=== PATIENT | male | born 1960 | race Caucasian/White ===

== ENCOUNTER 2016-08-05 07:32 | Day surgery (SDC) | payer MEDICARE ==
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
[~2016-08-05 07:32] MED LIST: Buffered Lidocaine 1% SYR 3ML* 3 ML/SYR SYRINGE INTRADERM ONE
[2016-08-05] MEDS ORDERED: ceFAZolin 2 GM PREMIX (*) 2 GM/50 ML BAG IVPB ONE (07:46)
[2016-08-05] MEDS ORDERED: Lidocaine 1% INJ* 10 MG/ML 30 ML SDV ONE (08:32)
[2016-08-05] MEDS ORDERED: Midazolam* 1 MG/ML 2 ML VIAL (2 MG) ONE ×2 (08:33→08:50)
[2016-08-05] MEDS ORDERED: fentaNYL* 50 MCG/ML 2 ML VIAL (100 MCG VIAL) ONE (08:33)
[2016-08-05] MEDS ORDERED: Propofol* 10 MG/ML 20 ML BTL IV PUSH ONE (08:49)
[2016-08-05] MEDS ORDERED: Ketorolac INJ* 30 MG/ML 1 ML VIAL ONE (08:49)
[2016-08-05] MEDS ORDERED: Lidocaine 2% PF * 5 ML VIAL ONE (08:49)
[2016-08-05] MEDS ORDERED: HYDROcodone/ACETAMIN 5-325 MG* 1 TAB PO PRN (09:14)
[2016-08-05] MEDS ORDERED: Acetaminophen TAB* 325 MG PO PRN (09:14)
[2016-08-05] MEDS ORDERED: Ondansetron INJ* 2 MG/ML VIAL IV PRN (09:14)
[2016-08-05] MEDS ORDERED: DiMENhydriNATE IV* 50 MG/ML VIAL IV PUSH PRN (09:14)
[2016-08-05 09:40] VITALS: BP 116/78
--- NOTE | 2016-08-06 07:17 | OP ---
DATE OF OPERATION: 08/05/16 [facility] DATE OF : 62 SURGEON: Dr. Duron. HEALTH SERVICE COORDINATOR: JOYCE Jean Baptiste ANESTHESIOLOGIST: Dr. Wallace ANESTHESIA: Local MAC. PRE-OP DIAGNOSIS: Boutonniere deformity of the right ring finger. POST-OP DIAGNOSIS: Boutonniere deformity of the right ring finger. OPERATIVE PROCEDURE: Extensor tenotomy of the right ring finger and PIP joint release. ESTIMATED BLOOD LOSS: Zero. TOURNIQUET TIME: 33 minutes. INDICATIONS FOR PROCEDURE: Varinder is a 56-year-old male who developed a Boutonniere deformity of his right ring finger and middle finger. The middle finger as nearly corrected with therapy, but the ring finger still has a very rigid flexion contracture with a very marked hyperextension of the DIP joint. He presents for Boutonniere correction of the right ring finger. DESCRIPTION OF PROCEDURE: The patient was brought to the operating room, was given a sedation anesthetic and a digital block with 10 cc of 1% lidocaine. The skin of his right hand and forearm were prepped and dapped in the usual sterile fashion. The hand and forearm were exsanguinated and the tourniquet elevated to 250 mmHg. A longitudinal incision was made on the dorsal aspect of the right finger. We dissected through the subcutaneous tissue down to the extensor mechanism. The extensor tendon overlying the mid aspect of the middle phalanx was incised in a diagonal fashion and then the DIP joint was able to flex. We then dissected the extensor tendon and central slip off of the periosteum and the joint capsule were still unable to extend the PIP joint so the collateral ligaments were incised and the radial lateral bands transected and then we were able to gain full extension of the PIP joint with the MP flexed and extended. There was very good range of motion, flexion, and extension. It was decided at this point not to proceed with further correct of the Boutonniere deformity so that we can concentrate on PIP range of motion and if necessary will come back to correct any attenuation of the central slip. The wound was irrigated and skin edges reapproximated with 4-0 nylon suture. The wound was dressed with Xeroform, 4 x 4, Webril, and Coban. The patient tolerated the procedure well and was brought to the recovery room in good condition. [id number]/[facility] #: [id number] [facility]
== END 2016-08-05 10:17 | disposition home or self-care (01) ==
LOC: OREAST 07:32
PROVIDERS: ATTEND Orthopaedic Surgery
DX: M20.021 Boutonniere deformity of right finger(s) (principal); I10 Essential (primary) hypertension; G47.33 Obstructive sleep apnea (adult) (pediatric)
CPT/HCPCS: J0690; J1885; J2250; J2704; J3010

== ENCOUNTER 2018-11-16 15:32 | Emergency (ER) | payer MEDICARE ==
[2018-11-16 15:46] VITALS: BP 130/91
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
== END 2018-11-16 16:29 | disposition home or self-care (01) ==
LOC: UCEAST 15:32
DX: T63.481A Toxic effect of venom of other arthropod, accidental (unintentional), initial encounter (principal); R53.83 Other fatigue; M79.10 Myalgia, unspecified site; Y92.007 Garden or yard of unspecified non-institutional (private) residence as the place of occurrence of the external cause
CPT/HCPCS: 99212; G0463

== ENCOUNTER 2019-04-16 17:44 | Inpatient (IN) | payer MEDICARE ==
--- OUTSIDE RECORDS SUMMARY | 2019-04-16 18:16 | XMS REPORT | Continuity of Care Document ---
:1960 External Reference #:[id number] Author Name Jericho Martínez MD Address [address] [place] [address] Care Team Providers Name Role Phone Vignesh Fleming M.D. 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 Gastroesophageal reflux disease Jericho Martínez MD Onset: 04/28/2016 Difficulty speaking Jericho Martínez MD Onset: 04/28/2016 Social History Type Date Description Comments Sex Unknown Tobacco Use Start: Unknown Never Smoked Cigarettes Tobacco Use Start: Unknown End: Unknown current.no Tobacco Use Start: Unknown End: Unknown current.no Smokeless Tobacco current.no ETOH Use Currently rarely consumes alcohol Allergies, Adverse Reactions, Alerts Description No Known Drug Allergies Medications Active Medications SIG Qnty Indications Ordering Date Provider Multivitamin & take once daily Unknown Mineral Liquid Lidocaine (Anorectal) apply to rectum 15units Unknown every 4 hours as 5% Cream needed pain Glucosamine 1 by mouth every Unknown Chondroitin 1500 day Complex 1500Com Capsules Fluoridex Unknown Lidocaine Vignesh Fleming M.D. 5% Ointment Claritin 1 by mouth every Unknown 10mg Tablets day Fluticasone Use 1 [place] In Unknown Propionate Each Nostril AT 50mcg/Act Bedtime Suspension Celecoxib Take 1 Capsule By Unknown 100mg Mouth Two Times Capsules Daily Esomeprazole Take 1 Capsule By Unknown Magnesium Mouth Every Day 40mg Capsules 30-[address] Before Breakfast Levalbuterol Tartrate Inhale 2 Puffs By Unknown Mouth Every 6 45mcg/Act Aerosol Hours Duloxetine HCL Take 2 Capsules Unknown 60mg By Mouth Every Caps DR Part Day Gabapentin Take 1 Capsule By Unknown 300mg Mouth AT Bedtime Capsules And Take 1 Capsule In The Day as Needed Topiramate 1 by mouth twice , Vignesh Buchanan 50mg Tablets a day Lisinopril 1 by mouth every Law, Vignesh Buchanan 20mg Tablets day Lipitor 1 by mouth every Law, Vignesh Buchanan 20mg Tablets day Epipen 2-Gonzalo inject as needed Law, Vignesh Buchanan for allergic 0.3mg/0.3ML Solution reaction Auto-Inject Diclofenac Sodium up to 3 times/day Law, Vignesh Buchanan 1% as needed Gel Clonazepam 1/4 tab twice a Law, Vignesh Buchanan 0.5mg day Tablets Buspirone HCL as directed Law, Vignesh Buchanan 15mg Tablets Bupropion HCL 1 by mouth twice Law, Vignesh Buchanan 75mg a day Tablets Immunizations Description No Information Available Vital Signs Date Vital Result Comment 04/11/2019 9:59am Weight 171.00 lb Weight 77.566 kg Height 71 inches 5'11" Height in cm's 180.3 cm BMI (Body Mass Index) 23.8 kg/m2 04/28/2016 3:26pm BP Systolic 159 mmHg BP Diastolic 89 mmHg Heart Rate 79 /min Respiratory Rate 17 /min Weight 156.00 lb Weight 70.762 kg Height 71 inches 5'11" Height in cm's 180.3 cm BMI (Body Mass Index) 21.8 kg/m2 Results Description No Information Available Procedures Description No Information Available Medical Devices Description No Information Available Encounters Type Date Location Provider Dx Diagnosis Office Visit 04/11/2019 Adonay Whyte Ashu K13.29 Other disturbances 9:30a 06/19/07 of oral epithelium, including tongue Assessments Date Code Description Provider 04/11/2019 K13.29 Other disturbances of oral epithelium, including Ruparelia , Jericho MD tongue Plan of Treatment 04/11/2019 - Jericho Martínez MDK13.29 Other disturbances of oral epithelium, including tongueComments:Small benign vascular lesion of the lower lip. No specific etiology for halitosis. Discussed using chlorophyll tablets which may help him these are [id number]. Functional Status Description No Information Available Mental Status Description No Information Available Referrals Description No Information Available
[2019-04-16] MEDS ORDERED: NS 0.9% 1000 ML** 1,000 ML IV ONE (18:39)
[2019-04-16] MEDS ORDERED: Lorazepam PYXIS KEY PRN ×3 (18:40→19:20)
[2019-04-16] MEDS ORDERED: LORazepam INJ* 2 MG/ML 1 ML VIAL IV PUSH ONE ×3 (18:40→19:20)
[2019-04-16] MEDS ORDERED: Lorazepam PYXIS KEY ONE ×2 (18:43→19:34)
[2019-04-16] MEDS ORDERED: LORazepam INJ* 2 MG/ML 1 ML VIAL ONE (18:43)
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
[2019-04-16 19:05] LABS: ABS Lymphocytes 0.9 10^3/ul (1.0-4.8); ABS Monocytes 0.5 10^3/ul (0-0.8); ABS Neutrophils 3.7 10^3/ul (1.5-7.7); Eosinophil % 0.1 %; Hematocrit 40 % (42-52); Hemoglobin 13.6 g/dL (14.0-18.0); Lymphocyte % 17.4 %; Mean Corpuscular HGB Conc 34 g/dL (31-36); Mean Corpuscular Hemoglobin 31 pg (27-31); Mean Corpuscular Volume 89 fL (80-94); Mean Platelet Volume 9.7 fL (7.4-10.4); Nucleated Red Blood Cells % 0.1; Platelet Count 163 10^3/uL (150-450); Red Blood Count 4.47 10^6 /uL (4.18-5.48); Red Cell Distribution Width 14 % (10-15); White Blood Count 5.1 10^3/uL (3.5-10.8)
[2019-04-16 19:24] LABS: ALT 26 U/L (7-52); AST 15 U/L (13-39); Albumin 4.2 g/dL (3.2-5.2); Alkaline Phosphatase 85 U/L (34-104); Anion Gap 7 mmol/L (2-11); BUN/Creatinine Ratio 25.3 (8-20); Blood Urea Nitrogen 20 mg/dL (6-24); CO2 Carbon Dioxide 27 mmol/L (22-32); Calcium 9.1 mg/dL (8.6-10.3); Chloride 106 mmol/L (101-111); EGFR African American 122.3 (>60); EGFR Non-African American 101.1 (>60); Globulin 2.1 g/dL (2-4); Glucose 100 mg/dL (70-100); Potassium 3.2 mmol/L (3.5-5.0); Sodium 140 mmol/L (135-145); Total Protein 6.3 g/dL (6.4-8.9)
[2019-04-16 19:58] LABS: TSH (Thyroid Stimulating Horm) 1.61 mcIU/mL (0.34-5.60)
[2019-04-16] MEDS ORDERED: Potassium Chlor TAB* 20 MEQ TAB.ER PO ONE (20:56)
[2019-04-16 22:07] LABS: Alcohol < 10 mg/dL (<10)
--- NOTE | 2019-04-16 22:14 | ED ---
Progress - Progress Note Progress Note: This pt is a sign out to Dr. Shrestha from Dr. Medina at shift change 2200 pending a MHE and disposition. Course/Dx - Course Course Of Treatment: This pt is a sign out to Dr. Shrestha from Dr. Medina at shift change 2200 04/16/19 pending a MHE and disposition. - Diagnoses Provider Diagnoses: Unspecified psychosis - Provider Notifications Time Discussed With Above Provider: 12:15 Instructed by Provider To: Other - Mental health informatics manager reviewed case with Dr. Mora, psychiatry. They recommend admission. Discharge ED - Sign-Out/Discharge Documenting (check all that apply): Patient Departure - Admit, Receiving Sign- Out Receiving patient FROM: Radha Medina - Discharge Plan Condition: Stable Disposition: PSYCHIATRIC FACILITY-[facility] - Attestation Statements Document Initiated by Scribe: Yes Documenting Scribe: Tyron Gurrola Provider For Whom Scribe is Documenting (Include Credential): Tiffanie Shrestha MD Scribe Attestation: Tyron Batista, scribed for Tiffanie Shrestha MD on 04/17/19 at 0143. Status of Scribe Document: Ready
[2019-04-16 23:26] LABS: Urine Appearance Clear; Urine Bilirubin Negative (Negative); Urine Blood Negative (Negative); Urine Color Amber; Urine Glucose Negative (Negative); Urine Ketones 2+ (Negative); Urine Nitrite Negative (Negative); Urine Protein Negative (Negative); Urine Specific Gravity 1.023 (1.010-1.030); Urine Urobilinogen Negative (Negative)
[2019-04-16 23:50] LABS: Urine Benzodiazepine Screen None Detected (None Detect); Urine Opiates Screen None Detected (None Detect)
[2019-04-17] MEDS ORDERED: Al Hydrox/Mg Hydrox/Simet LIQ* 30 ML UDC PO PRN (03:19)
[2019-04-17] MEDS: Vitamin THERAPEUTIC TAB PO SCH (10:24)
[2019-04-17] MEDS ORDERED: DICLOFENAC 1% TOPICAL PRN (14:07)
[2019-04-17] MEDS ORDERED: Levalbuterol HFA INHALER* 1 PUFF MDI INH PRN (14:07)
--- NOTE | 2019-04-17 16:56 | PN ---
BSU: Group Therapy Note - Service Type Service Type: [id number] Group Psychotherapy - Medication Education Group: Patient was attentive and participatory in group, and remained in good behavioral control. Patient expressed positive insights regarding relevant treatment interventions. Patient stated understanding of material discussed and had appropriate questions.
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
[2019-04-17] MEDS ORDERED: busPIRone TAB* 15 MG PO SCH (21:00)
[2019-04-17] MEDS ORDERED: Gabapentin CAP(*) 300 MG PO SCH (21:00)
[2019-04-17] MEDS: celeCOXIB CAP* 100 MG PO SCH (21:18)
[2019-04-17] MEDS: Gabapentin CAP(*) 300 MG PO SCH (21:18)
[2019-04-17] MEDS: Topiramate TAB(*) 25 MG PO SCH (21:18)
[2019-04-17] MEDS: busPIRone TAB* 15 MG PO SCH (21:18)
[2019-04-18] MEDS: clonazePAM TAB(*) 0.5 MG PO PRN ×2 (03:51→09:17)
[2019-04-18 08:45] LABS: HDL Cholesterol 50.5 mg/dL
[2019-04-18] MEDS: busPIRone TAB* 15 MG PO SCH ×3 (09:15→21:22)
[2019-04-18] MEDS: DULoxetine DR CAP* 60 MG CAP.DR PO SCH (09:15)
[2019-04-18] MEDS: Lisinopril TAB* 10 MG PO SCH (09:15)
[2019-04-18] MEDS: Atorvastatin* 20 MG TAB PO SCH (09:15)
[2019-04-18] MEDS: celeCOXIB CAP* 100 MG PO SCH ×2 (09:16→21:23)
[2019-04-18] MEDS: Topiramate TAB(*) 25 MG PO SCH ×2 (09:16→21:23)
[2019-04-18] MEDS: Pantoprazole TAB * 40 MG TAB PO SCH (09:16)
[2019-04-18] MEDS: Cetirizine* 10 MG TAB PO SCH (09:16)
[2019-04-18] MEDS: Vitamin THERAPEUTIC TAB PO SCH (09:17)
[2019-04-18] MEDS: Acetaminophen TAB* 325 MG PO PRN (11:25)
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
[2019-04-18] MEDS: Divalproex DR TAB(*) 250 MG PO SCH (21:24)
[2019-04-18] MEDS: Gabapentin CAP(*) 300 MG PO SCH (21:24)
[2019-04-19] MEDS: clonazePAM TAB(*) 0.5 MG PO PRN ×2 (02:02→15:35)
[2019-04-19] MEDS: Atorvastatin* 20 MG TAB PO SCH (13:48)
[2019-04-19] MEDS: Cetirizine* 10 MG TAB PO SCH (13:48)
[2019-04-19] MEDS: DULoxetine DR CAP* 60 MG CAP.DR PO SCH (13:48)
[2019-04-19] MEDS: busPIRone TAB* 15 MG PO SCH ×3 (13:48→21:33)
[2019-04-19] MEDS: Lisinopril TAB* 10 MG PO SCH (13:49)
[2019-04-19] MEDS: Topiramate TAB(*) 25 MG PO SCH ×2 (13:49→21:35)
[2019-04-19] MEDS: Vitamin THERAPEUTIC TAB PO SCH (13:49)
[2019-04-19] MEDS: celeCOXIB CAP* 100 MG PO SCH ×2 (13:49→21:38)
[2019-04-19] MEDS: Divalproex DR TAB(*) 250 MG PO SCH ×2 (13:49→21:34)
[2019-04-19] MEDS: Pantoprazole TAB * 40 MG TAB PO SCH (13:49)
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
[2019-04-19] MEDS: Gabapentin CAP(*) 300 MG PO SCH (21:34)
[2019-04-20] MEDS: Divalproex DR TAB(*) 250 MG PO SCH ×2 (10:25→20:58)
[2019-04-20] MEDS: Cetirizine* 10 MG TAB PO SCH (10:25)
[2019-04-20] MEDS: Atorvastatin* 20 MG TAB PO SCH (10:25)
[2019-04-20] MEDS: Pantoprazole TAB * 40 MG TAB PO SCH (10:25)
[2019-04-20] MEDS: Topiramate TAB(*) 25 MG PO SCH ×2 (10:26→21:00)
[2019-04-20] MEDS: DULoxetine DR CAP* 60 MG CAP.DR PO SCH (10:26)
[2019-04-20] MEDS: Lisinopril TAB* 10 MG PO SCH (10:26)
[2019-04-20] MEDS: busPIRone TAB* 15 MG PO SCH ×3 (10:26→20:58)
[2019-04-20] MEDS: Vitamin THERAPEUTIC TAB PO SCH (10:27)
[2019-04-20] MEDS: celeCOXIB CAP* 100 MG PO SCH (10:27)
[2019-04-20] MEDS: CMC:Diclofenac 1% GEL (NF) 100 GM TUBE TOPICAL PRN ×2 (11:28→21:04)
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
[2019-04-20] MEDS: Acetaminophen TAB* 325 MG PO PRN (20:57)
[2019-04-20] MEDS: Gabapentin CAP(*) 300 MG PO SCH (20:59)
[2019-04-20] MEDS: clonazePAM TAB(*) 0.5 MG PO PRN (21:00)
[2019-04-21] MEDS: clonazePAM TAB(*) 0.5 MG PO PRN ×3 (01:16→23:30)
[2019-04-21] MEDS: celeCOXIB CAP* 100 MG PO SCH ×2 (01:26→09:46)
[2019-04-21] MEDS: DULoxetine DR CAP* 60 MG CAP.DR PO SCH (09:46)
[2019-04-21] MEDS: busPIRone TAB* 15 MG PO SCH ×3 (09:46→20:00)
[2019-04-21] MEDS: Topiramate TAB(*) 25 MG PO SCH ×2 (09:46→20:00)
[2019-04-21] MEDS: Pantoprazole TAB * 40 MG TAB PO SCH (09:47)
[2019-04-21] MEDS: Atorvastatin* 20 MG TAB PO SCH (09:47)
[2019-04-21] MEDS: Cetirizine* 10 MG TAB PO SCH (09:47)
[2019-04-21] MEDS: Divalproex DR TAB(*) 250 MG PO SCH ×2 (09:47→20:01)
[2019-04-21] MEDS: Lisinopril TAB* 10 MG PO SCH (09:47)
[2019-04-21] MEDS: Vitamin THERAPEUTIC TAB PO SCH (09:48)
[2019-04-21] MEDS: CMC:Diclofenac 1% GEL (NF) 100 GM TUBE TOPICAL PRN (09:49)
[2019-04-21] MEDS: Acetaminophen TAB* 325 MG PO PRN (15:22)
[2019-04-21] MEDS: Gabapentin CAP(*) 300 MG PO SCH (20:01)
[2019-04-21] MEDS: Lidocaine 5% OINT* TUBE TOPICAL PRN (20:05)
[2019-04-22] MEDS: clonazePAM TAB(*) 0.5 MG PO PRN ×2 (05:21→21:54)
[2019-04-22] MEDS: Lidocaine 5% OINT* TUBE TOPICAL PRN (05:22)
[2019-04-22] MEDS: busPIRone TAB* 15 MG PO SCH ×3 (09:15→20:07)
[2019-04-22] MEDS: DULoxetine DR CAP* 60 MG CAP.DR PO SCH (09:15)
[2019-04-22] MEDS: Lisinopril TAB* 10 MG PO SCH (09:15)
[2019-04-22] MEDS: Divalproex DR TAB(*) 250 MG PO SCH ×2 (09:15→20:07)
[2019-04-22] MEDS: Cetirizine* 10 MG TAB PO SCH (09:16)
[2019-04-22] MEDS: Pantoprazole TAB * 40 MG TAB PO SCH (09:16)
[2019-04-22] MEDS: Atorvastatin* 20 MG TAB PO SCH (09:16)
[2019-04-22] MEDS: Topiramate TAB(*) 25 MG PO SCH ×2 (09:16→20:06)
[2019-04-22] MEDS: Vitamin THERAPEUTIC TAB PO SCH (09:16)
[2019-04-22] MEDS: celeCOXIB CAP* 100 MG PO SCH ×3 (09:16→20:35)
[2019-04-22] MEDS: CMC:Diclofenac 1% GEL (NF) 100 GM TUBE TOPICAL PRN ×2 (10:22→20:09)
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
[2019-04-22] MEDS: Gabapentin CAP(*) 300 MG PO SCH (20:06)
[2019-04-22] MEDS: Acetaminophen TAB* 325 MG PO PRN (22:01)
[2019-04-23] MEDS: clonazePAM TAB(*) 0.5 MG PO PRN (00:18)
[2019-04-23] MEDS: celeCOXIB CAP* 100 MG PO SCH (08:46)
[2019-04-23] MEDS: Atorvastatin* 20 MG TAB PO SCH (08:47)
[2019-04-23] MEDS: Lisinopril TAB* 10 MG PO SCH (08:47)
[2019-04-23] MEDS: Cetirizine* 10 MG TAB PO SCH (08:47)
[2019-04-23] MEDS: Divalproex DR TAB(*) 250 MG PO SCH (08:47)
[2019-04-23] MEDS: busPIRone TAB* 15 MG PO SCH (08:48)
[2019-04-23] MEDS: Pantoprazole TAB * 40 MG TAB PO SCH (08:48)
[2019-04-23] MEDS: DULoxetine DR CAP* 60 MG CAP.DR PO SCH (08:48)
[2019-04-23] MEDS: Vitamin THERAPEUTIC TAB PO SCH (08:48)
[2019-04-23] MEDS: Topiramate TAB(*) 25 MG PO SCH (08:49)
[2019-04-23 09:33] VITALS: BP 130/79
[2019-04-23] MEDS: CMC:Diclofenac 1% GEL (NF) 100 GM TUBE TOPICAL PRN (09:47)
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
== END 2019-04-23 14:00 | disposition home or self-care (01) | DRG 885 ==
LOC: ED 17:44 → BSU 04-17 01:00
PROVIDERS: ADMIT Psychiatry & Neurology Psychiatry; ATTEND Psychiatry & Neurology Psychiatry
DX: F30.2 Manic episode, severe with psychotic symptoms (principal); F43.12 Post-traumatic stress disorder, chronic; Z87.820 Personal history of traumatic brain injury; Z79.899 Other long term (current) drug therapy
CPT/HCPCS: 36415; 70450; 80053; 80061; 80307; 80320; 81003; 83036; 83605; 84443; 84484; 85025; 90853; 93005; 96374; 99222; 99231; 99232; 99238; 99284; A9270-GY; G0480; J2060

== ENCOUNTER 2019-04-24 11:28 | Inpatient (IN) | payer MEDICARE ==
[2019-04-24] MEDS ORDERED: LORazepam TAB(*) 1 MG PO ONE (11:33)
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
[2019-04-24 11:51] LABS: ABS Eosinophils 0.1 10^3/ul (0-0.6); ABS Lymphocytes 1.1 10^3/ul (1.0-4.8); ABS Monocytes 0.5 10^3/ul (0-0.8); ABS Neutrophils 3.9 10^3/ul (1.5-7.7); Eosinophil % 1.4 %; Hematocrit 44 % (42-52); Lymphocyte % 19.4 %; Mean Corpuscular HGB Conc 34 g/dL (31-36); Mean Corpuscular Hemoglobin 31 pg (27-31); Mean Corpuscular Volume 90 fL (80-94); Mean Platelet Volume 9.2 fL (7.4-10.4); Nucleated Red Blood Cells % 0.1; Platelet Count 186 10^3/uL (150-450); Red Blood Count 4.84 10^6 /uL (4.18-5.48); Red Cell Distribution Width 14 % (10-15); White Blood Count 5.5 10^3/uL (3.5-10.8)
[2019-04-24 11:57] LABS: Urine Appearance Clear; Urine Bilirubin Negative (Negative); Urine Blood Negative (Negative); Urine Color Yellow; Urine Glucose Negative (Negative); Urine Ketones Trace (Negative); Urine Nitrite Negative (Negative); Urine Protein Negative (Negative); Urine Specific Gravity 1.013 (1.010-1.030); Urine Urobilinogen Negative (Negative)
[2019-04-24 12:08] LABS: Urine Benzodiazepine Screen None Detected (None Detect); Urine Opiates Screen None Detected (None Detect)
[2019-04-24 12:08] LABS: ALT 18 U/L (7-52); AST 15 U/L (13-39); Albumin 4.7 g/dL (3.2-5.2); Albumin/Globulin Ratio 2.1 (1-3); Alkaline Phosphatase 89 U/L (34-104); Anion Gap 10 mmol/L (2-11); BUN/Creatinine Ratio 22.5 (8-20); Blood Urea Nitrogen 20 mg/dL (6-24); CO2 Carbon Dioxide 25 mmol/L (22-32); Calcium 9.5 mg/dL (8.6-10.3); Chloride 106 mmol/L (101-111); EGFR African American 106.6 (>60); EGFR Non-African American 88.1 (>60); Globulin 2.2 g/dL (2-4); Glucose 90 mg/dL (70-100); Potassium 3.5 mmol/L (3.5-5.0); Sodium 141 mmol/L (135-145); Total Protein 6.9 g/dL (6.4-8.9)
[2019-04-24 12:43] LABS: Acetaminophen < 15 mcg/mL; Alcohol < 10 mg/dL (<10); Salicylate < 2.50 mg/dL (<30)
[2019-04-24 12:56] LABS: TSH (Thyroid Stimulating Horm) 1.56 mcIU/mL (0.34-5.60)
[2019-04-24] MEDS ORDERED: Al Hydrox/Mg Hydrox/Simet LIQ* 30 ML UDC PO PRN (14:36)
[2019-04-24] MEDS ORDERED: Levalbuterol HFA INHALER* 1 PUFF MDI INH PRN (14:39)
[2019-04-24] MEDS ORDERED: Lidocaine 5% OINT* TUBE TOPICAL PRN (14:39)
[2019-04-24] MEDS ORDERED: Docusate CAP* 100 MG PO PRN (14:48)
[2019-04-24] MEDS ORDERED: Diclofenac 1% GEL (NF) 100 GM TUBE TOPICAL PRN (14:49)
[2019-04-24] MEDS ORDERED: clonazePAM TAB(*) 0.5 MG PO PRN (14:51)
[2019-04-24] MEDS: Topiramate TAB(*) 25 MG PO SCH (20:16)
[2019-04-24] MEDS: Gabapentin CAP(*) 300 MG PO SCH (20:16)
[2019-04-24] MEDS: celeCOXIB CAP* 100 MG PO SCH (20:17)
[2019-04-24] MEDS: busPIRone TAB* 10 MG PO SCH (20:17)
[2019-04-24] MEDS ORDERED: celeCOXIB CAP* 100 MG PO SCH (21:00)
[2019-04-24] MEDS ORDERED: busPIRone TAB* 15 MG PO SCH (21:00)
[2019-04-25] MEDS: Fluticasone NASAL SPRAY 50MCG* 16 gm SPRAY BTL BOTH NARES SCH (08:49)
[2019-04-25] MEDS: Cetirizine* 10 MG TAB PO SCH (08:50)
[2019-04-25] MEDS: Lisinopril TAB* 10 MG PO SCH (08:50)
[2019-04-25] MEDS: Topiramate TAB(*) 25 MG PO SCH ×2 (08:50→21:27)
[2019-04-25] MEDS: Pantoprazole TAB * 40 MG TAB PO SCH (08:51)
[2019-04-25] MEDS: Atorvastatin* 20 MG TAB PO SCH (08:51)
[2019-04-25] MEDS: DULoxetine DR CAP* 30 MG CAP.DR PO SCH (08:52)
[2019-04-25] MEDS: busPIRone TAB* 10 MG PO SCH ×3 (08:53→21:27)
[2019-04-25] MEDS: Vitamin THERAPEUTIC TAB PO SCH (08:53)
[2019-04-25] MEDS: celeCOXIB CAP* 100 MG PO SCH ×2 (08:53→21:28)
[2019-04-25] MEDS ORDERED: Fluticasone NASAL SPRAY 50MCG* 16 gm SPRAY BTL BOTH NARES SCH (09:00)
[2019-04-25] MEDS ORDERED: DULoxetine DR CAP* 60 MG CAP.DR PO SCH (09:00)
[2019-04-25] MEDS ORDERED: risperiDONE-M * 1 MG TAB.ORADIS PO ONE (14:42)
[2019-04-25] MEDS ORDERED: LORazepam TAB(*) 1 MG PO ONE (14:42)
[2019-04-25] MEDS ORDERED: risperiDONE TAB* 1 MG ONE (14:47)
[2019-04-25] MEDS ORDERED: LORazepam TAB(*) 1 MG ONE (14:47)
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
[2019-04-25] MEDS: Gabapentin CAP(*) 300 MG PO SCH (21:29)
[2019-04-26] MEDS: Fluticasone NASAL SPRAY 50MCG* 16 gm SPRAY BTL BOTH NARES SCH (08:40)
[2019-04-26] MEDS: Lisinopril TAB* 10 MG PO SCH (08:41)
[2019-04-26] MEDS: DULoxetine DR CAP* 30 MG CAP.DR PO SCH (08:42)
[2019-04-26] MEDS: celeCOXIB CAP* 100 MG PO SCH ×2 (08:45→20:29)
[2019-04-26] MEDS: Topiramate TAB(*) 25 MG PO SCH ×2 (08:45→20:30)
[2019-04-26] MEDS: Pantoprazole TAB * 40 MG TAB PO SCH (08:46)
[2019-04-26] MEDS: Cetirizine* 10 MG TAB PO SCH (08:46)
[2019-04-26] MEDS: busPIRone TAB* 10 MG PO SCH ×3 (08:47→20:28)
[2019-04-26] MEDS: Vitamin THERAPEUTIC TAB PO SCH (08:47)
[2019-04-26] MEDS: Atorvastatin* 20 MG TAB PO SCH (08:47)
[2019-04-26] MEDS: Lidocaine 5% OINT* TUBE TOPICAL PRN (14:15)
--- NOTE | 2019-04-26 14:37 | PN ---
Subjective - Subjective Date of Service: 04/26/19 Service Type: 70603 Hosp care 25 min moderate complexity Subjective: While Trevor is not so floridly psychotic as he was yesterday, he remains manic with some psychosis accompanying it. Trevor spent about 15 minutes explaining his art, his exercising, his ability to live in a small space such as his bathroom if only it had a microwave. His papers are shuffled into a messy pile on the sink and he demonstrates how he can fit into the shower or sit on the toilet with ease and exercise from each location. Objective - General Observations Appearance: Disheveled Appears Stated Age: Yes Stature: WNL Posture: Atypical Eye Contact: Intense Behavior/Activity: Peculiar, Impulsive - Interaction Observations Attitude Towards Examiner: Cooperative, Confused Stated Mood: Elevated, Expansive, Euphoric Affect: Bright Speech Pattern/Tone: Clear, Normal Volume, Rambling, Excessive Thought Process: Coherent, Flight of Ideas Perception: WNL Thought Content: Grandiose Hallucination Type: Denies Delusion Type: Grandeur - Cognitive Function Orientation: A&O x 4 Level of Consciousness: Awake, Alert Cognition: Impaired Cognition, Impaired Attention/Concentration Estimated Intelligence: Normal Insight: Difficulty Acknowledging Presence of Psyciatric Problems Judgment Within Normal Limits: No Ability to Make Reasonable Decisions: Serverely Impaired - Medication Compliance Cooperative with Inpatient Medication Regimen: Yes - Group Participation Participates in Group Activities: No Assessment - Assessment Merits Inpatient Hospitalization: For Immediate Safety Inpatient DSM-V Dx: F30.2 Clinical Impression: Trevor is a 58-year-old man who has been diagnosed with at least two TBIs and 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 Plan - Plan Treatment Plan: Name: SCOTT GIMENEZ Birthdate: 1960 [id number] 04/26/19 Trevor will be started on Abilify and lithium tonight. Risperdal was effective to calm him, but the long-term side effects of risperidone are undesirable. To treat braxton, we will use lithium, starting at 300 mg BID. To treat psychosis, we will use Abilify 5 mg. In addition, we will add Ativan PRN for anxiety and agitation and sleep. Continued Medication Management: Different Medication Medications: Current Medications Acetaminophen (Tylenol Tab*) 650 mg PO Q4H PRN PRN Reason: for pain; or Temp >101 F Al Hydrox/Mg Hydrox/Simethicone (Maalox Plus*) 30 ml PO Q4H PRN PRN Reason: INDIGESTION Atorvastatin Calcium (Lipitor*) 20 mg PO DAILY [facility] Last Admin: 04/26/19 08:47 Dose: 20 mg Buspirone HCl (Buspar Tab*) 10 mg PO TID [facility] Last Admin: 04/26/19 14:15 Dose: 10 mg Celecoxib (Celebrex Cap*) 100 mg PO BID [facility] Last Admin: 04/26/19 08:45 Dose: 100 mg Cetirizine HCl (Zyrtec*) 10 mg PO DAILY [facility] Last Admin: 04/26/19 08:46 Dose: 10 mg Clonazepam (Klonopin Tab(*)) 0.5 mg PO TID PRN PRN Reason: ANXIETY Diclofenac Sodium (Voltaren 1% Gel (Nf)) 1 applic TOPICAL DAILY PRN; Protocol PRN Reason: PAIN - MILD Docusate Sodium (Colace Cap*) 200 mg PO DAILY PRN PRN Reason: CONSTIPATION Duloxetine HCl (Cymbalta Cap*) 90 mg PO DAILY [facility] Last Admin: 04/26/19 08:42 Dose: 90 mg Fluticasone Propionate (Flonase Nasal [place] 50mcg*) 2 spray BOTH NARES DAILY [facility] Last Admin: 04/26/19 08:40 Dose: 2 spray Gabapentin (Neurontin Cap(*)) 300 mg PO BEDTIME [facility] Last Admin: 04/25/19 21:29 Dose: 300 mg Levalbuterol HCl (Xopenex Hfa Inhaler*) 2 puff INH Q6H PRN PRN Reason: SHORTNESS OF BREATH Lidocaine (Xylocaine 5% Oint*) 1 applic TOPICAL DAILY PRN PRN Reason: TO HANDS Last Admin: 04/26/19 14:15 Dose: 1 dose Lisinopril (Prinivil Tab*) 20 mg PO QAM [facility] Last Admin: 04/26/19 08:41 Dose: 20 mg Multivitamins (Theragran Tab*) 1 tab PO DAILY [facility] Last Admin: 04/26/19 08:47 Dose: 1 tab Pantoprazole Sodium (Protonix Tab*) 40 mg PO DAILY [facility] Last Admin: 04/26/19 08:46 Dose: 40 mg Risperidone (Risperdal) 0.5 mg PO BEDTIME [facility] Last Admin: 04/25/19 21:32 Dose: Not Given Topiramate (Topamax(*)) 50 mg PO BID [facility] Last Admin: 04/26/19 08:45 Dose: 50 mg - Discharge Plan Discharge Plan: Outpatient Follow Up Outpatient Program: [facility]
[2019-04-26] MEDS: LORazepam TAB(*) 1 MG PO PRN ×2 (16:17→23:27)
[2019-04-26] MEDS: Acetaminophen TAB* 325 MG PO PRN ×2 (17:53→23:27)
[2019-04-26] MEDS: ARIPiprazole TAB* 5 MG PO SCH (20:29)
[2019-04-26] MEDS: Gabapentin CAP(*) 300 MG PO SCH (20:29)
[2019-04-26] MEDS: Lithium Carbonate TAB* 300 MG PO SCH (20:30)
[2019-04-27] MEDS: Acetaminophen TAB* 325 MG PO PRN ×2 (04:57→16:37)
[2019-04-27] MEDS: Topiramate TAB(*) 25 MG PO SCH ×2 (08:34→20:20)
[2019-04-27] MEDS: Lisinopril TAB* 10 MG PO SCH (08:34)
[2019-04-27] MEDS: Fluticasone NASAL SPRAY 50MCG* 16 gm SPRAY BTL BOTH NARES SCH (08:34)
[2019-04-27] MEDS: DULoxetine DR CAP* 30 MG CAP.DR PO SCH (08:34)
[2019-04-27] MEDS: busPIRone TAB* 10 MG PO SCH ×3 (08:34→20:19)
[2019-04-27] MEDS: Atorvastatin* 20 MG TAB PO SCH (08:35)
[2019-04-27] MEDS: Vitamin THERAPEUTIC TAB PO SCH (08:35)
[2019-04-27] MEDS: Cetirizine* 10 MG TAB PO SCH (08:35)
[2019-04-27] MEDS: celeCOXIB CAP* 100 MG PO SCH ×2 (08:35→20:19)
[2019-04-27] MEDS: Lithium Carbonate TAB* 300 MG PO SCH ×2 (08:35→20:20)
[2019-04-27] MEDS: Pantoprazole TAB * 40 MG TAB PO SCH (08:35)
[2019-04-27] MEDS: LORazepam TAB(*) 1 MG PO PRN ×2 (11:05→17:00)
[2019-04-27] MEDS: Lidocaine 5% OINT* TUBE TOPICAL PRN (11:07)
[2019-04-27] MEDS: ARIPiprazole TAB* 5 MG PO SCH (20:19)
[2019-04-27] MEDS: Gabapentin CAP(*) 300 MG PO SCH (20:19)
[2019-04-28] MEDS: LORazepam TAB(*) 1 MG PO PRN ×3 (05:15→16:15)
[2019-04-28] MEDS: Lithium Carbonate TAB* 300 MG PO SCH ×2 (09:11→20:09)
[2019-04-28] MEDS: DULoxetine DR CAP* 30 MG CAP.DR PO SCH (09:12)
[2019-04-28] MEDS: Vitamin THERAPEUTIC TAB PO SCH (09:12)
[2019-04-28] MEDS: Lisinopril TAB* 10 MG PO SCH (09:12)
[2019-04-28] MEDS: celeCOXIB CAP* 100 MG PO SCH ×2 (09:12→20:09)
[2019-04-28] MEDS: Cetirizine* 10 MG TAB PO SCH (09:12)
[2019-04-28] MEDS: busPIRone TAB* 10 MG PO SCH ×3 (09:12→20:08)
[2019-04-28] MEDS: Pantoprazole TAB * 40 MG TAB PO SCH (09:12)
[2019-04-28] MEDS: Atorvastatin* 20 MG TAB PO SCH (09:12)
[2019-04-28] MEDS: Topiramate TAB(*) 25 MG PO SCH ×2 (09:12→20:08)
[2019-04-28] MEDS: Lidocaine 5% OINT* TUBE TOPICAL PRN (09:13)
[2019-04-28] MEDS: Fluticasone NASAL SPRAY 50MCG* 16 gm SPRAY BTL BOTH NARES SCH (09:13)
[2019-04-28] MEDS: Acetaminophen TAB* 325 MG PO PRN (12:09)
--- NOTE | 2019-04-28 15:59 | PN ---
Subjective - Subjective Date of Service: 04/28/19 Service Type: 93302 Hosp care 25 min moderate complexity Subjective: Trevor was in bed resting at the time of evaluation. Appeared calm and pleasant. Denied any issues with mood, thoughts or perceptions contrary to all reports. Also denies S or HI. Says he has been taking and tolerating his meds well. Objective - General Observations Appearance: Disheveled Appears Stated Age: Yes Stature: WNL Posture: WNL Eye Contact: Avoidant Behavior/Activity: WNL - Interaction Observations Attitude Towards Examiner: Cooperative Stated Mood: Euthymic Affect: Full Speech Pattern/Tone: Clear, Appropriate, Normal Volume Thought Process: Coherent, Goal Directed Perception: WNL Thought Content: WNL Hallucination Type: Denies Delusion Type: Denies - Cognitive Function Orientation: Person, Place Level of Consciousness: Awake, Alert, Appropriate Cognition: WNL Estimated Intelligence: Normal Insight: WNL Judgment Within Normal Limits: Yes - Medication Compliance Cooperative with Inpatient Medication Regimen: Yes - Group Participation Participates in Group Activities: No Assessment - Assessment Merits Inpatient Hospitalization: For Immediate Safety, For Stabilization Inpatient DSM-V Dx: F30.2 Clinical Impression: Trevor is a 58-year-old man who has been diagnosed with at least two TBIs and 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 Plan - Plan Treatment Plan: Name: SCOTT GIMENEZ Birthdate: 1960 [id number] 04/26/19 Trevor will be started on Abilify and lithium tonight. Risperdal was effective to calm him, but the long-term side effects of risperidone are undesirable. To treat braxton, we will use lithium, starting at 300 mg BID. To treat psychosis, we will use Abilify 5 mg. In addition, we will add Ativan PRN for anxiety and agitation and sleep. Continued Medication Management: Continue Outpt Medication Medications: Current Medications Acetaminophen (Tylenol Tab*) 650 mg PO Q4H PRN PRN Reason: for pain; or Temp >101 F Last Admin: 04/28/19 12:09 Dose: 650 mg Al Hydrox/Mg Hydrox/Simethicone (Maalox Plus*) 30 ml PO Q4H PRN PRN Reason: INDIGESTION Aripiprazole (Abilify Tab*) 5 mg PO BEDTIME [facility] Last Admin: 04/27/19 20:19 Dose: 5 mg Atorvastatin Calcium (Lipitor*) 20 mg PO DAILY [facility] Last Admin: 04/28/19 09:12 Dose: 20 mg Buspirone HCl (Buspar Tab*) 10 mg PO TID [facility] Last Admin: 04/28/19 13:40 Dose: 10 mg Celecoxib (Celebrex Cap*) 100 mg PO BID [facility] Last Admin: 04/28/19 09:12 Dose: 100 mg Cetirizine HCl (Zyrtec*) 10 mg PO DAILY [facility] Last Admin: 04/28/19 09:12 Dose: 10 mg Diclofenac Sodium (Voltaren 1% Gel (Nf)) 1 applic TOPICAL DAILY PRN; Protocol PRN Reason: PAIN - MILD Docusate Sodium (Colace Cap*) 200 mg PO DAILY PRN PRN Reason: CONSTIPATION Duloxetine HCl (Cymbalta Cap*) 30 mg PO DAILY [facility] Last Admin: 04/28/19 09:12 Dose: 30 mg Fluticasone Propionate (Flonase Nasal [place] 50mcg*) 2 spray BOTH NARES DAILY [facility] Last Admin: 04/28/19 09:13 Dose: 2 spray Gabapentin (Neurontin Cap(*)) 300 mg PO BEDTIME [facility] Last Admin: 04/27/19 20:19 Dose: 300 mg Levalbuterol HCl (Xopenex Hfa Inhaler*) 2 puff INH Q6H PRN PRN Reason: SHORTNESS OF BREATH Lidocaine (Xylocaine 5% Oint*) 1 applic TOPICAL DAILY PRN PRN Reason: TO HANDS Last Admin: 04/28/19 09:13 Dose: 1 dose Lisinopril (Prinivil Tab*) 20 mg PO QAM [facility] Last Admin: 04/28/19 09:12 Dose: 20 mg [place] Carbonate ([place] Carbonate Tab*) 300 mg PO BID [facility] Last Admin: 04/28/19 09:11 Dose: 300 mg Lorazepam (Ativan Tab(*)) 1 mg PO Q4H PRN PRN Reason: Anxiety, agitation, insomnia Last Admin: 04/28/19 12:09 Dose: 1 mg Multivitamins (Theragran Tab*) 1 tab PO DAILY [facility] Last Admin: 04/28/19 09:12 Dose: 1 tab Pantoprazole Sodium (Protonix Tab*) 40 mg PO DAILY [facility] Last Admin: 04/28/19 09:12 Dose: 40 mg Topiramate (Topamax(*)) 50 mg PO BID [facility] Last Admin: 04/28/19 09:12 Dose: 50 mg - Discharge Plan Discharge Plan: Outpatient Follow Up Outpatient Program: [facility]
[2019-04-28] MEDS: ARIPiprazole TAB* 5 MG PO SCH (20:08)
[2019-04-28] MEDS: Gabapentin CAP(*) 300 MG PO SCH (20:09)
[2019-04-29] MEDS: LORazepam TAB(*) 1 MG PO PRN ×5 (00:40→20:39)
[2019-04-29] MEDS: celeCOXIB CAP* 100 MG PO SCH ×2 (08:50→20:34)
[2019-04-29] MEDS: busPIRone TAB* 10 MG PO SCH ×3 (08:50→20:34)
[2019-04-29] MEDS: DULoxetine DR CAP* 30 MG CAP.DR PO SCH (08:50)
[2019-04-29] MEDS: Topiramate TAB(*) 25 MG PO SCH ×2 (08:51→20:36)
[2019-04-29] MEDS: Atorvastatin* 20 MG TAB PO SCH (08:51)
[2019-04-29] MEDS: Vitamin THERAPEUTIC TAB PO SCH (08:51)
[2019-04-29] MEDS: Cetirizine* 10 MG TAB PO SCH (08:51)
[2019-04-29] MEDS: Lithium Carbonate TAB* 300 MG PO SCH ×2 (08:51→20:35)
[2019-04-29] MEDS: Pantoprazole TAB * 40 MG TAB PO SCH (08:52)
[2019-04-29] MEDS: Lisinopril TAB* 10 MG PO SCH (08:52)
[2019-04-29] MEDS: Fluticasone NASAL SPRAY 50MCG* 16 gm SPRAY BTL BOTH NARES SCH (08:53)
[2019-04-29] MEDS: Lidocaine 5% OINT* TUBE TOPICAL PRN (14:29)
--- NOTE | 2019-04-29 15:15 | PN ---
Subjective - Subjective Date of Service: 04/29/19 Service Type: [id number] Hosp care 15 min low complexity Subjective: Trevor is eager to leave and is pleasant in conversation. He is also hyperverbal and difficult to keep on topic. He is very focused on his hands, which when I saw him he was putting lidocaine ointment on. He is clearly still manic, making tangential connections, and being overly familiar with staff, although in a comical rather than inappropriate way. Objective - General Observations Appearance: Disheveled Appears Stated Age: Yes Stature: WNL Posture: WNL Eye Contact: Intense Behavior/Activity: Accelerated, Peculiar - Interaction Observations Attitude Towards Examiner: Cooperative, Anxious Stated Mood: Elevated, Expansive Affect: Full, Bright Speech Pattern/Tone: Clear, Rambling, Excessive Thought Process: Tangential, Flight of Ideas, Racing Perception: WNL Thought Content: Grandiose Hallucination Type: None Delusion Type: Denies, Grandeur, Somatic - Cognitive Function Orientation: A&O x 4 Level of Consciousness: Awake, Alert, Appropriate Cognition: WNL Estimated Intelligence: Normal Insight: Difficulty Acknowledging Presence of Psyciatric Problems Judgment Within Normal Limits: No Ability to Make Reasonable Decisions: Serverely Impaired - Medication Compliance Cooperative with Inpatient Medication Regimen: Yes - Group Participation Participates in Group Activities: Partial Assessment - Assessment Merits Inpatient Hospitalization: For Immediate Safety Inpatient DSM-V Dx: F30.2 Clinical Impression: Trevor is a 58-year-old man who has been diagnosed with at least two TBIs and 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 Plan - Plan Treatment Plan: Name: SCOTT GIMENEZ Birthdate: 1960 [id number] 04/26/19 Trevor will be started on Abilify and lithium tonight. Risperdal was effective to calm him, but the long-term side effects of risperidone are undesirable. To treat braxton, we will use lithium, starting at 300 mg BID. To treat psychosis, we will use Abilify 5 mg. In addition, we will add Ativan PRN for anxiety and agitation and sleep. 04/29/19 Trevor will continue with medications as ordered. He is being considered for increased Abilify. A lithium level will be drawn in the morning. Medications: Current Medications Acetaminophen (Tylenol Tab*) 650 mg PO Q4H PRN PRN Reason: for pain; or Temp >101 F Last Admin: 04/28/19 12:09 Dose: 650 mg Al Hydrox/Mg Hydrox/Simethicone (Maalox Plus*) 30 ml PO Q4H PRN PRN Reason: INDIGESTION Aripiprazole (Abilify Tab*) 5 mg PO BEDTIME [facility] Last Admin: 04/28/19 20:08 Dose: 5 mg Atorvastatin Calcium (Lipitor*) 20 mg PO DAILY [facility] Last Admin: 04/29/19 08:51 Dose: 20 mg Buspirone HCl (Buspar Tab*) 10 mg PO TID [facility] Last Admin: 04/29/19 13:52 Dose: 10 mg Celecoxib (Celebrex Cap*) 100 mg PO BID [facility] Last Admin: 04/29/19 08:50 Dose: 100 mg Cetirizine HCl (Zyrtec*) 10 mg PO DAILY [facility] Last Admin: 04/29/19 08:51 Dose: 10 mg Diclofenac Sodium (Voltaren 1% Gel (Nf)) 1 applic TOPICAL DAILY PRN; Protocol PRN Reason: PAIN - MILD Docusate Sodium (Colace Cap*) 200 mg PO DAILY PRN PRN Reason: CONSTIPATION Duloxetine HCl (Cymbalta Cap*) 30 mg PO DAILY [facility] Last Admin: 04/29/19 08:50 Dose: 30 mg Fluticasone Propionate (Flonase Nasal [place] 50mcg*) 2 spray BOTH NARES DAILY [facility] Last Admin: 04/29/19 08:53 Dose: 2 spray Gabapentin (Neurontin Cap(*)) 300 mg PO BEDTIME [facility] Last Admin: 04/28/19 20:09 Dose: 300 mg Levalbuterol HCl (Xopenex Hfa Inhaler*) 2 puff INH Q6H PRN PRN Reason: SHORTNESS OF BREATH Lidocaine (Xylocaine 5% Oint*) 1 applic TOPICAL DAILY PRN PRN Reason: TO HANDS Last Admin: 04/29/19 14:29 Dose: 1 dose Lisinopril (Prinivil Tab*) 20 mg PO QAM [facility] Last Admin: 04/29/19 08:52 Dose: 20 mg [place] Carbonate ([place] Carbonate Tab*) 300 mg PO BID [facility] Last Admin: 04/29/19 08:51 Dose: 300 mg Lorazepam (Ativan Tab(*)) 1 mg PO Q4H PRN PRN Reason: Anxiety, agitation, insomnia Last Admin: 04/29/19 10:55 Dose: 1 mg Multivitamins (Theragran Tab*) 1 tab PO DAILY [facility] Last Admin: 04/29/19 08:51 Dose: 1 tab Pantoprazole Sodium (Protonix Tab*) 40 mg PO DAILY [facility] Last Admin: 04/29/19 08:52 Dose: 40 mg Topiramate (Topamax(*)) 50 mg PO BID [facility] Last Admin: 04/29/19 08:51 Dose: 50 mg - Discharge Plan Discharge Plan: Outpatient Follow Up Outpatient Program: Dr. Fleming's office
[2019-04-29] MEDS: Acetaminophen TAB* 325 MG PO PRN (15:37)
[2019-04-29] MEDS: ARIPiprazole TAB* 5 MG PO SCH (20:34)
[2019-04-29] MEDS: Gabapentin CAP(*) 300 MG PO SCH (20:35)
[2019-04-30] MEDS: LORazepam TAB(*) 1 MG PO PRN ×4 (00:16→15:58)
[2019-04-30] MEDS: Acetaminophen TAB* 325 MG PO PRN ×2 (00:17→15:58)
[2019-04-30] MEDS: Topiramate TAB(*) 25 MG PO SCH ×2 (08:36→20:35)
[2019-04-30] MEDS: DULoxetine DR CAP* 30 MG CAP.DR PO SCH (08:36)
[2019-04-30] MEDS: Lithium Carbonate TAB* 300 MG PO SCH ×2 (08:36→20:39)
[2019-04-30] MEDS: Lisinopril TAB* 10 MG PO SCH (08:36)
[2019-04-30] MEDS: Cetirizine* 10 MG TAB PO SCH (08:37)
[2019-04-30] MEDS: Atorvastatin* 20 MG TAB PO SCH (08:37)
[2019-04-30] MEDS: busPIRone TAB* 10 MG PO SCH ×3 (08:37→20:35)
[2019-04-30] MEDS: Vitamin THERAPEUTIC TAB PO SCH (08:37)
[2019-04-30] MEDS: Pantoprazole TAB * 40 MG TAB PO SCH (08:38)
[2019-04-30] MEDS: Fluticasone NASAL SPRAY 50MCG* 16 gm SPRAY BTL BOTH NARES SCH (08:38)
[2019-04-30] MEDS: celeCOXIB CAP* 100 MG PO SCH ×2 (08:38→20:38)
[2019-04-30] MEDS: Levalbuterol HFA INHALER* 1 PUFF MDI INH PRN (08:39)
[2019-04-30] MEDS: Lidocaine 5% OINT* TUBE TOPICAL PRN (08:40)
--- NOTE | 2019-04-30 13:32 | PN ---
Subjective - Subjective Date of Service: 04/30/19 Service Type: [id number] Hosp care 25 min moderate complexity Subjective: Trevor is eager to leave. He states he feels better and that he's doing well. 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 He is willing to have increased Abilify tonight and a blood draw tomorrow to determine lithium level. Objective - General Observations Appearance: Disheveled, Unkempt Appears Stated Age: Yes Stature: WNL Posture: WNL Eye Contact: Intense Behavior/Activity: Accelerated, Peculiar - Interaction Observations Attitude Towards Examiner: Cooperative, Anxious, Defensive Stated Mood: Elevated, Euthymic, Anxious Affect: Bright Speech Pattern/Tone: Clear, Rambling Thought Process: Coherent, Loose Associations, Tangential Perception: WNL Thought Content: Obsessional, Paranoid Hallucination Type: None Delusion Type: Denies, Persecution, Grandeur - Cognitive Function Orientation: A&O x 4 Level of Consciousness: Awake, Alert, Appropriate Cognition: Impaired Cognition, Impaired Memory, Impaired Attention/Concentration Estimated Intelligence: Normal Insight: Difficulty Acknowledging Presence of Psyciatric Problems Judgment Within Normal Limits: No Ability to Make Reasonable Decisions: Moderately Impaired - Medication Compliance Cooperative with Inpatient Medication Regimen: Yes - Group Participation Participates in Group Activities: Partial Assessment - Assessment Merits Inpatient Hospitalization: For Immediate Safety Inpatient DSM-V Dx: F30.2 Clinical Impression: Trevor is a 58-year-old man who has been diagnosed with at least two TBIs and 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 Plan - Plan Treatment Plan: Name: SCOTT GIMENEZ Birthdate: 1960 [id number] 04/26/19 Trevor will be started on Abilify and lithium tonight. Risperdal was effective to calm him, but the long-term side effects of risperidone are undesirable. To treat braxton, we will use lithium, starting at 300 mg BID. To treat psychosis, we will use Abilify 5 mg. In addition, we will add Ativan PRN for anxiety and agitation and sleep. 04/29/19 Trevor will continue with medications as ordered. He is being considered for increased Abilify. A lithium level will be drawn in the morning. 04/30/19 Abilify to increase to 10 mg tonight. [place] level to be drawn tomorrow (Trevor is agreeable to this). Possibly increase lithium tomorrow. Medications: Current Medications Acetaminophen (Tylenol Tab*) 650 mg PO Q4H PRN PRN Reason: for pain; or Temp >101 F Last Admin: 04/30/19 00:17 Dose: 650 mg Al Hydrox/Mg Hydrox/Simethicone (Maalox Plus*) 30 ml PO Q4H PRN PRN Reason: INDIGESTION Last Admin: 04/30/19 00:16 Dose: 30 ml Aripiprazole (Abilify Tab*) 10 mg PO BEDTIME COUNTS INCLUDE 234 BEDS AT THE [facility] Atorvastatin Calcium (Lipitor*) 20 mg PO DAILY COUNTS INCLUDE 234 BEDS AT THE [facility] Last Admin: 04/30/19 08:37 Dose: 20 mg Buspirone HCl (Buspar Tab*) 10 mg PO TID COUNTS INCLUDE 234 BEDS AT THE [facility] Last Admin: 04/30/19 08:37 Dose: 10 mg Celecoxib (Celebrex Cap*) 100 mg PO BID COUNTS INCLUDE 234 BEDS AT THE [facility] Last Admin: 04/30/19 08:38 Dose: 100 mg Cetirizine HCl (Zyrtec*) 10 mg PO DAILY COUNTS INCLUDE 234 BEDS AT THE [facility] Last Admin: 04/30/19 08:37 Dose: 10 mg Diclofenac Sodium (Voltaren 1% Gel (Nf)) 1 applic TOPICAL DAILY PRN; Protocol PRN Reason: PAIN - MILD Docusate Sodium (Colace Cap*) 200 mg PO DAILY PRN PRN Reason: CONSTIPATION Fluticasone Propionate (Flonase Nasal [place] 50mcg*) 2 spray BOTH NARES DAILY COUNTS INCLUDE 234 BEDS AT THE [facility] Last Admin: 04/30/19 08:38 Dose: 2 spray Gabapentin (Neurontin Cap(*)) 300 mg PO BEDTIME COUNTS INCLUDE 234 BEDS AT THE [facility] Last Admin: 04/29/19 20:35 Dose: 300 mg Levalbuterol HCl (Xopenex Hfa Inhaler*) 2 puff INH Q6H PRN PRN Reason: SHORTNESS OF BREATH Last Admin: 04/30/19 08:39 Dose: 2 puff Lidocaine (Xylocaine 5% Oint*) 1 applic TOPICAL DAILY PRN PRN Reason: TO HANDS Last Admin: 04/30/19 08:40 Dose: 1 dose Lisinopril (Prinivil Tab*) 20 mg PO QAM COUNTS INCLUDE 234 BEDS AT THE [facility] Last Admin: 04/30/19 08:36 Dose: 20 mg [place] Carbonate ([place] Carbonate Tab*) 300 mg PO BID COUNTS INCLUDE 234 BEDS AT THE [facility] Last Admin: 04/30/19 08:36 Dose: 300 mg Lorazepam (Ativan Tab(*)) 1 mg PO Q4H PRN PRN Reason: Anxiety, agitation, insomnia Last Admin: 04/30/19 11:58 Dose: 1 mg Multivitamins (Theragran Tab*) 1 tab PO DAILY COUNTS INCLUDE 234 BEDS AT THE [facility] Last Admin: 04/30/19 08:37 Dose: 1 tab Pantoprazole Sodium (Protonix Tab*) 40 mg PO DAILY COUNTS INCLUDE 234 BEDS AT THE [facility] Last Admin: 04/30/19 08:38 Dose: 40 mg Topiramate (Topamax(*)) 50 mg PO BID COUNTS INCLUDE 234 BEDS AT THE [facility] Last Admin: 04/30/19 08:36 Dose: 50 mg - Discharge Plan Discharge Plan: Outpatient Follow Up Outpatient Program: [facility]
[2019-04-30] MEDS: ARIPiprazole TAB* 5 MG PO SCH (20:35)
[2019-04-30] MEDS: Gabapentin CAP(*) 300 MG PO SCH (20:39)
[2019-05-01] MEDS: Acetaminophen TAB* 325 MG PO PRN ×3 (00:56→20:39)
[2019-05-01] MEDS: LORazepam TAB(*) 1 MG PO PRN ×5 (01:03→20:38)
[2019-05-01] MEDS: Lidocaine 5% OINT* TUBE TOPICAL PRN ×2 (01:04→16:01)
[2019-05-01] MEDS: celeCOXIB CAP* 100 MG PO SCH ×2 (09:25→20:00)
[2019-05-01] MEDS: Fluticasone NASAL SPRAY 50MCG* 16 gm SPRAY BTL BOTH NARES SCH (09:25)
[2019-05-01] MEDS: Lisinopril TAB* 10 MG PO SCH (09:26)
[2019-05-01] MEDS: Atorvastatin* 20 MG TAB PO SCH (09:27)
[2019-05-01] MEDS: Cetirizine* 10 MG TAB PO SCH (09:27)
[2019-05-01] MEDS: Vitamin THERAPEUTIC TAB PO SCH (09:27)
[2019-05-01] MEDS: busPIRone TAB* 10 MG PO SCH ×3 (09:28→19:59)
[2019-05-01] MEDS: Topiramate TAB(*) 25 MG PO SCH ×2 (09:28→17:12)
[2019-05-01] MEDS: Pantoprazole TAB * 40 MG TAB PO SCH (09:28)
[2019-05-01] MEDS: Lithium Carbonate TAB* 300 MG PO SCH ×2 (09:29→20:00)
--- NOTE | 2019-05-01 13:39 | PN ---
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 He remains concerned about his medications but seems less intrusive about the physical ailments he is suffering with. He would like his Topamax to be changed to 0900 and 1700, which will be accomplished. He is encouraged to get sleep and is told that he must sleep before he can go home. He remains kind and charming and manic. Objective - General Observations Appearance: Disheveled Appears Stated Age: Yes Stature: WNL Posture: WNL Eye Contact: Intense Behavior/Activity: Accelerated, Peculiar - Interaction Observations Attitude Towards Examiner: Cooperative, Anxious Stated Mood: Elevated, Expansive, Anxious Affect: Full, Bright Speech Pattern/Tone: Clear, Rambling, Excessive Thought Process: Coherent Perception: WNL Thought Content: Preoccupation/Ruminations, Grandiose Hallucination Type: None Delusion Type: Denies - Cognitive Function Orientation: A&O x 4 Level of Consciousness: Awake, Alert, Appropriate Cognition: Impaired Attention/Concentration, Impaired Ability to Abstract Estimated Intelligence: Normal Insight: Difficulty Acknowledging Presence of Psyciatric Problems Judgment Within Normal Limits: No Ability to Make Reasonable Decisions: Serverely Impaired - Medication Compliance Cooperative with Inpatient Medication Regimen: Yes - Group Participation Participates in Group Activities: Partial Assessment - Assessment Merits Inpatient Hospitalization: For Immediate Safety Inpatient DSM-V Dx: F30.2 Clinical Impression: Trevor is a 58-year-old man who has been diagnosed with at least two TBIs and 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 Plan - Plan Treatment Plan: Name: SCOTT GIMENEZ Birthdate: 1960 [id number] 04/26/19 Trevor will be started on Abilify and lithium tonight. Risperdal was effective to calm him, but the long-term side effects of risperidone are undesirable. To treat braxton, we will use lithium, starting at 300 mg BID. To treat psychosis, we will use Abilify 5 mg. In addition, we will add Ativan PRN for anxiety and agitation and sleep. 04/29/19 Trevor will continue with medications as ordered. He is being considered for increased Abilify. A lithium level will be drawn in the morning. 04/30/19 Abilify to increase to 10 mg tonight. [place] level to be drawn tomorrow (Trevor is agreeable to this). Possibly increase lithium tomorrow. 05/01/19 Increase lithium to 300 QAM 600 QHS, as lithium level was <0.4. Change Topamax times at Trevor's request as he believes this will more adequately block headaches. He has been encouraged to try to sleep. Continued Medication Management: Different Medication Medications: Current Medications Acetaminophen (Tylenol Tab*) 650 mg PO Q4H PRN PRN Reason: for pain; or Temp >101 F Last Admin: 05/01/19 00:56 Dose: 650 mg Al Hydrox/Mg Hydrox/Simethicone (Maalox Plus*) 30 ml PO Q4H PRN PRN Reason: INDIGESTION Last Admin: 04/30/19 00:16 Dose: 30 ml Aripiprazole (Abilify Tab*) 10 mg PO BEDTIME [facility] Last Admin: 04/30/19 20:35 Dose: 10 mg Atorvastatin Calcium (Lipitor*) 20 mg PO DAILY [facility] Last Admin: 05/01/19 09:27 Dose: 20 mg Buspirone HCl (Buspar Tab*) 10 mg PO TID [facility] Last Admin: 05/01/19 09:28 Dose: 10 mg Celecoxib (Celebrex Cap*) 100 mg PO BID [facility] Last Admin: 05/01/19 09:25 Dose: 100 mg Cetirizine HCl (Zyrtec*) 10 mg PO DAILY [facility] Last Admin: 05/01/19 09:27 Dose: 10 mg Diclofenac Sodium (Voltaren 1% Gel (Nf)) 1 applic TOPICAL DAILY PRN; Protocol PRN Reason: PAIN - MILD Docusate Sodium (Colace Cap*) 200 mg PO DAILY PRN PRN Reason: CONSTIPATION Fluticasone Propionate (Flonase Nasal [place] 50mcg*) 2 spray BOTH NARES DAILY [facility] Last Admin: 05/01/19 09:25 Dose: 2 spray Gabapentin (Neurontin Cap(*)) 300 mg PO BEDTIME [facility] Last Admin: 04/30/19 20:39 Dose: 300 mg Levalbuterol HCl (Xopenex Hfa Inhaler*) 2 puff INH Q6H PRN PRN Reason: SHORTNESS OF BREATH Last Admin: 04/30/19 08:39 Dose: 2 puff Lidocaine (Xylocaine 5% Oint*) 1 applic TOPICAL DAILY PRN PRN Reason: TO HANDS Last Admin: 05/01/19 01:04 Dose: 1 dose Lisinopril (Prinivil Tab*) 20 mg PO QAM [facility] Last Admin: 05/01/19 09:26 Dose: 20 mg [place] Carbonate ([place] Carbonate Tab*) 600 mg PO BEDTIME [facility] [place] Carbonate ([place] Carbonate Tab*) 300 mg PO DAILY [facility] Lorazepam (Ativan Tab(*)) 1 mg PO Q4H PRN PRN Reason: Anxiety, agitation, insomnia Last Admin: 05/01/19 11:22 Dose: 1 mg Multivitamins (Theragran Tab*) 1 tab PO DAILY [facility] Last Admin: 05/01/19 09:27 Dose: 1 tab Pantoprazole Sodium (Protonix Tab*) 40 mg PO DAILY [facility] Last Admin: 05/01/19 09:28 Dose: 40 mg Topiramate (Topamax(*)) 50 mg PO 0900,1700 [facility] - Discharge Plan Discharge Plan: Outpatient Follow Up Outpatient Program: [facility]
--- NOTE | 2019-05-01 16:28 | PN ---
BSU: Group Therapy Note - Service Type Service Type: [id number] Group Psychotherapy - Group Participation Patient Participating in Group: Yes Level of Group Participation: Attentive, Non-participatory Relatedness to Group: Well Related - Additional Group Comments Group Comments: Trevor was late to group, but pleasant and eager to pay attention. He did not participate, but he was appropriate in behavior.
[2019-05-01] MEDS: ARIPiprazole TAB* 5 MG PO SCH (19:59)
[2019-05-01] MEDS: Gabapentin CAP(*) 300 MG PO SCH (19:59)
[2019-05-02] MEDS: LORazepam TAB(*) 1 MG PO PRN ×2 (03:02→12:41)
[2019-05-02] MEDS: Acetaminophen TAB* 325 MG PO PRN ×3 (05:57→20:06)
[2019-05-02] MEDS: Levalbuterol HFA INHALER* 1 PUFF MDI INH PRN ×2 (05:58→12:41)
[2019-05-02] MEDS: Lidocaine 5% OINT* TUBE TOPICAL PRN ×2 (05:59→20:07)
[2019-05-02] MEDS: celeCOXIB CAP* 100 MG PO SCH ×2 (08:33→20:03)
[2019-05-02] MEDS: Atorvastatin* 20 MG TAB PO SCH (08:34)
[2019-05-02] MEDS: Topiramate TAB(*) 25 MG PO SCH ×2 (08:34→16:50)
[2019-05-02] MEDS: Pantoprazole TAB * 40 MG TAB PO SCH (08:34)
[2019-05-02] MEDS: Lisinopril TAB* 10 MG PO SCH (08:34)
[2019-05-02] MEDS: Vitamin THERAPEUTIC TAB PO SCH (08:34)
[2019-05-02] MEDS: Lithium Carbonate TAB* 300 MG PO SCH ×2 (08:34→20:03)
[2019-05-02] MEDS: busPIRone TAB* 10 MG PO SCH ×3 (08:34→20:03)
[2019-05-02] MEDS: Cetirizine* 10 MG TAB PO SCH (08:35)
[2019-05-02] MEDS: Fluticasone NASAL SPRAY 50MCG* 16 gm SPRAY BTL BOTH NARES SCH (08:35)
[2019-05-02] MEDS: LORazepam TAB(*) 1 MG PO SCH ×3 (14:48→21:53)
[2019-05-02] MEDS: Gabapentin CAP(*) 300 MG PO SCH (20:03)
[2019-05-02] MEDS: ARIPiprazole TAB* 5 MG PO SCH (20:03)
[2019-05-03] MEDS: Acetaminophen TAB* 325 MG PO PRN ×2 (04:24→15:22)
[2019-05-03] MEDS: Atorvastatin* 20 MG TAB PO SCH (08:34)
[2019-05-03] MEDS: busPIRone TAB* 10 MG PO SCH ×3 (08:34→19:59)
[2019-05-03] MEDS: Vitamin THERAPEUTIC TAB PO SCH (08:34)
[2019-05-03] MEDS: Lisinopril TAB* 10 MG PO SCH (08:34)
[2019-05-03] MEDS: Topiramate TAB(*) 25 MG PO SCH ×2 (08:34→18:15)
[2019-05-03] MEDS: Levalbuterol HFA INHALER* 1 PUFF MDI INH PRN (08:34)
[2019-05-03] MEDS: celeCOXIB CAP* 100 MG PO SCH ×2 (08:34→19:59)
[2019-05-03] MEDS: Cetirizine* 10 MG TAB PO SCH (08:34)
[2019-05-03] MEDS: Lithium Carbonate TAB* 300 MG PO SCH ×2 (08:34→19:59)
[2019-05-03] MEDS: Pantoprazole TAB * 40 MG TAB PO SCH (08:34)
[2019-05-03] MEDS: Fluticasone NASAL SPRAY 50MCG* 16 gm SPRAY BTL BOTH NARES SCH (08:35)
[2019-05-03] MEDS: DICLOFENAC 1% TOPICAL PRN (08:35)
[2019-05-03] MEDS: LORazepam TAB(*) 1 MG PO SCH ×4 (10:02→20:01)
[2019-05-03] MEDS ORDERED: Hemorrhoidal OINT PR PRN (11:06)
--- NOTE | 2019-05-03 14:01 | PN ---
Subjective - Subjective Date of Service: 05/03/19 Service Type: 27998 Hosp care 25 min moderate complexity Subjective: Trevor very much wants to go home. He finds it uncomfortable here and he states he feels "unsafe." Some of his complaints are valid, such as an imperfect mattress and a sink that is clogged. He cannot understand that he cannot go home. He also does not recall how bizarre his behavior was when he arrived and how strange it remains. A ten minute conversation about when he could go home resulted in his submitting a 72 hour notice. The conversation was circular and he could not understand the rules around not being able to go home. Further, when the conversation was ended, Trevor continued to say, "I'm going home tonight," despite clear direction that he would not be going. Objective - General Observations Appearance: Disheveled Appears Stated Age: Yes Stature: WNL Posture: WNL Eye Contact: Intense Behavior/Activity: Peculiar, Impulsive, Agitated - Interaction Observations Attitude Towards Examiner: Uncooperative, Anxious, Confused, Demanding Stated Mood: Elevated, Anxious Affect: Labile Speech Pattern/Tone: Clear, Normal Volume, Rambling, Excessive, Pressured Thought Process: Disorganized, Circumstantial Perception: WNL Thought Content: Preoccupation/Ruminations, Obsessional Hallucination Type: Denies Delusion Type: Somatic - Cognitive Function Orientation: A&O x 4 Level of Consciousness: Awake, Alert, Appropriate Cognition: Impaired Cognition, Impaired Attention/Concentration, Impaired Ability to Abstract Estimated Intelligence: Normal Insight: Difficulty Acknowledging Presence of Psyciatric Problems Judgment Within Normal Limits: No Ability to Make Reasonable Decisions: Serverely Impaired - Medication Compliance Cooperative with Inpatient Medication Regimen: Yes - Group Participation Participates in Group Activities: Partial Assessment - Assessment Merits Inpatient Hospitalization: For Immediate Safety Inpatient DSM-V Dx: F30.2 Clinical Impression: Trevor is a 58-year-old man who has been diagnosed with at least two TBIs and 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 Plan - Plan Treatment Plan: Name: SCOTT GIMENEZ Birthdate: 1960 [id number] 04/26/19 Trevor will be started on Abilify and lithium tonight. Risperdal was effective to calm him, but the long-term side effects of risperidone are undesirable. To treat braxton, we will use lithium, starting at 300 mg BID. To treat psychosis, we will use Abilify 5 mg. In addition, we will add Ativan PRN for anxiety and agitation and sleep. 04/29/19 Trevor will continue with medications as ordered. He is being considered for increased Abilify. A lithium level will be drawn in the morning. 04/30/19 Abilify to increase to 10 mg tonight. [place] level to be drawn tomorrow (Trevor is agreeable to this). Possibly increase lithium tomorrow. 05/01/19 Increase lithium to 300 QAM 600 QHS, as lithium level was <0.4. Change Topamax times at Trevor's request as he believes this will more adequately block headaches. He has been encouraged to try to sleep. 05/03/19 Change from Abilify to Seroquel. Abilify does not seem to be potent enough to reduce Trevor's braxton or cause him to sleep. Duloxetine was removed from his medications, as well. Medications: Current Medications Acetaminophen (Tylenol Tab*) 650 mg PO Q4H PRN PRN Reason: for pain; or Temp >101 F Last Admin: 05/03/19 04:24 Dose: 650 mg Al Hydrox/Mg Hydrox/Simethicone (Maalox Plus*) 30 ml PO Q4H PRN PRN Reason: INDIGESTION Last Admin: 04/30/19 00:16 Dose: 30 ml Aripiprazole (Abilify Tab*) 10 mg PO BEDTIME [facility] Last Admin: 05/02/19 20:03 Dose: 10 mg Atorvastatin Calcium (Lipitor*) 20 mg PO DAILY [facility] Last Admin: 05/03/19 08:34 Dose: 20 mg Buspirone HCl (Buspar Tab*) 10 mg PO TID [facility] Last Admin: 05/03/19 08:34 Dose: 10 mg Celecoxib (Celebrex Cap*) 100 mg PO BID [facility] Last Admin: 05/03/19 08:34 Dose: 100 mg Cetirizine HCl (Zyrtec*) 10 mg PO DAILY [facility] Last Admin: 05/03/19 08:34 Dose: 10 mg Diclofenac Sodium (Voltaren 1% Gel (Nf)) 1 applic TOPICAL DAILY PRN; Protocol PRN Reason: PAIN - MILD Last Admin: 05/03/19 08:35 Dose: 1 dose Docusate Sodium (Colace Cap*) 200 mg PO DAILY PRN PRN Reason: CONSTIPATION Fluticasone Propionate (Flonase Nasal [place] 50mcg*) 2 spray BOTH NARES DAILY [facility] Last Admin: 05/03/19 08:35 Dose: 2 spray Gabapentin (Neurontin Cap(*)) 300 mg PO BEDTIME [facility] Last Admin: 05/02/19 20:03 Dose: 300 mg Levalbuterol HCl (Xopenex Hfa Inhaler*) 2 puff INH Q6H PRN PRN Reason: SHORTNESS OF BREATH Last Admin: 05/03/19 08:34 Dose: 2 puff Lidocaine (Xylocaine 5% Oint*) 1 applic TOPICAL DAILY PRN PRN Reason: TO HANDS Last Admin: 05/02/19 20:07 Dose: 1 applic Lisinopril (Prinivil Tab*) 20 mg PO QAM [facility] Last Admin: 05/03/19 08:34 Dose: 20 mg [place] Carbonate ([place] Carbonate Tab*) 600 mg PO BEDTIME [facility] Last Admin: 05/02/19 20:03 Dose: 600 mg [place] Carbonate ([place] Carbonate Tab*) 300 mg PO DAILY [facility] Last Admin: 05/03/19 08:34 Dose: 300 mg Lorazepam (Ativan Tab(*)) 1 mg PO 0800,1200,1700,2100 [facility] Last Admin: 05/03/19 12:28 Dose: 1 mg Multivitamins (Theragran Tab*) 1 tab PO DAILY [facility] Last Admin: 05/03/19 08:34 Dose: 1 tab Pantoprazole Sodium (Protonix Tab*) 40 mg PO DAILY [facility] Last Admin: 05/03/19 08:34 Dose: 40 mg Phenyleph/Shark Oil/Min Oil/Petrol (Preparation H*) 1 applic [place] QID PRN PRN Reason: hemorrhoid pain Topiramate (Topamax(*)) 50 mg PO 0900,1700 [facility] Last Admin: 05/03/19 08:34 Dose: 50 mg
[2019-05-03] MEDS: Gabapentin CAP(*) 300 MG PO SCH (20:00)
[2019-05-03] MEDS: QUEtiapine TAB* 300 MG PO SCH (20:00)
[2019-05-04] MEDS: Levalbuterol HFA INHALER* 1 PUFF MDI INH PRN (05:38)
[2019-05-04] MEDS: Lidocaine 5% OINT* TUBE TOPICAL PRN ×2 (05:41→14:46)
[2019-05-04] MEDS: Acetaminophen TAB* 325 MG PO PRN ×2 (05:42→10:40)
[2019-05-04] MEDS: busPIRone TAB* 10 MG PO SCH ×3 (08:55→21:11)
[2019-05-04] MEDS: Lisinopril TAB* 10 MG PO SCH (08:56)
[2019-05-04] MEDS: celeCOXIB CAP* 100 MG PO SCH ×2 (08:56→21:12)
[2019-05-04] MEDS: Pantoprazole TAB * 40 MG TAB PO SCH (08:56)
[2019-05-04] MEDS: Atorvastatin* 20 MG TAB PO SCH (08:56)
[2019-05-04] MEDS: Vitamin THERAPEUTIC TAB PO SCH (08:56)
[2019-05-04] MEDS: Lithium Carbonate TAB* 300 MG PO SCH ×2 (08:57→21:12)
[2019-05-04] MEDS: Topiramate TAB(*) 25 MG PO SCH ×2 (08:58→16:52)
[2019-05-04] MEDS: Cetirizine* 10 MG TAB PO SCH (08:58)
[2019-05-04] MEDS: LORazepam TAB(*) 1 MG PO SCH ×4 (08:59→21:14)
[2019-05-04] MEDS: Fluticasone NASAL SPRAY 50MCG* 16 gm SPRAY BTL BOTH NARES SCH (09:00)
[2019-05-04] MEDS: Gabapentin CAP(*) 300 MG PO SCH (21:11)
[2019-05-04] MEDS: QUEtiapine TAB* 300 MG PO SCH (21:12)
[2019-05-05] MEDS: Vitamin THERAPEUTIC TAB PO SCH (07:56)
[2019-05-05] MEDS: Lisinopril TAB* 10 MG PO SCH (07:56)
[2019-05-05] MEDS: Atorvastatin* 20 MG TAB PO SCH (07:56)
[2019-05-05] MEDS: Pantoprazole TAB * 40 MG TAB PO SCH (07:57)
[2019-05-05] MEDS: Topiramate TAB(*) 25 MG PO SCH ×2 (07:57→17:57)
[2019-05-05] MEDS: Cetirizine* 10 MG TAB PO SCH (07:57)
[2019-05-05] MEDS: Lithium Carbonate TAB* 300 MG PO SCH ×2 (07:57→20:32)
[2019-05-05] MEDS: celeCOXIB CAP* 100 MG PO SCH ×2 (07:58→20:31)
[2019-05-05] MEDS: Fluticasone NASAL SPRAY 50MCG* 16 gm SPRAY BTL BOTH NARES SCH (07:58)
[2019-05-05] MEDS: busPIRone TAB* 10 MG PO SCH ×3 (07:58→20:31)
[2019-05-05] MEDS: Levalbuterol HFA INHALER* 1 PUFF MDI INH PRN (07:59)
[2019-05-05] MEDS: LORazepam TAB(*) 1 MG PO SCH ×4 (08:04→20:32)
[2019-05-05] MEDS: Acetaminophen TAB* 325 MG PO PRN (11:49)
[2019-05-05] MEDS: Lidocaine 5% OINT* TUBE TOPICAL PRN (14:40)
[2019-05-05] MEDS: QUEtiapine TAB* 300 MG PO SCH (20:31)
[2019-05-05] MEDS: Gabapentin CAP(*) 300 MG PO SCH (20:32)
[2019-05-06] MEDS: celeCOXIB CAP* 100 MG PO SCH ×2 (08:10→21:12)
[2019-05-06] MEDS: busPIRone TAB* 10 MG PO SCH ×3 (08:10→21:12)
[2019-05-06] MEDS: Topiramate TAB(*) 25 MG PO SCH ×2 (08:11→17:26)
[2019-05-06] MEDS: Lisinopril TAB* 10 MG PO SCH (08:11)
[2019-05-06] MEDS: Vitamin THERAPEUTIC TAB PO SCH (08:13)
[2019-05-06] MEDS: Atorvastatin* 20 MG TAB PO SCH (08:13)
[2019-05-06] MEDS: Pantoprazole TAB * 40 MG TAB PO SCH (08:13)
[2019-05-06] MEDS: Lithium Carbonate TAB* 300 MG PO SCH ×2 (08:13→21:12)
[2019-05-06] MEDS: Cetirizine* 10 MG TAB PO SCH (08:13)
[2019-05-06] MEDS: Fluticasone NASAL SPRAY 50MCG* 16 gm SPRAY BTL BOTH NARES SCH (08:15)
[2019-05-06] MEDS: LORazepam TAB(*) 1 MG PO SCH ×4 (08:15→21:13)
--- NOTE | 2019-05-06 13:13 | PN ---
Subjective - Subjective Date of Service: 05/06/19 Service Type: 62907 Hosp care 25 min moderate complexity Subjective: Trevor has improved somewhat. He feels like the "sleeping aid", which we discussed also clears thoughts and reduces racing thoughts, has made an enormous difference. He states he feels well enough to go home, but also acknowledges that others have a role to play in when he goes home. His thoughts are more organized, but he remains hyperverbal with rambling speech that does tend to [place] around to his original topic, which is different from what he used to do. He continues to be concerned about Dr. Fleming's patient portal being compromised, as well as the [facility] portal. I did attempt to confirm this about the [facility] portal, but individuals at the HELP desk indicated that to their knowledge, this had never occurred. Trevor is appreciative of his stay here and wants to help reduce the stigma around mental illness and would like to do NH or outreach. He says he's done these things in the past. In a pleasantly grandiose manner, he is interested in helping the unit. Trevor does report a sore throat and an ear ache. He would like losenges but nothing for his ear, which he said is clearing up on its own. Objective - General Observations Appearance: Disheveled Appears Stated Age: Yes Stature: WNL Posture: WNL Eye Contact: Average Behavior/Activity: WNL, Peculiar - Interaction Observations Attitude Towards Examiner: Cooperative, Anxious Stated Mood: Euthymic, Anxious Affect: Bright Speech Pattern/Tone: Clear, Normal Volume, Rambling, Excessive Thought Process: Goal Directed, Loose Associations, Circumstantial Perception: WNL Thought Content: Preoccupation/Ruminations, Grandiose Hallucination Type: None Delusion Type: Somatic - Cognitive Function Orientation: A&O x 4 Level of Consciousness: Awake, Alert, Appropriate Cognition: Impaired Cognition, Impaired Attention/Concentration, Impaired Ability to Abstract Estimated Intelligence: Normal Insight: Difficulty Acknowledging Presence of Psyciatric Problems Judgment Within Normal Limits: No Ability to Make Reasonable Decisions: Moderately Impaired - Medication Compliance Cooperative with Inpatient Medication Regimen: Yes - Group Participation Participates in Group Activities: Yes Assessment - Assessment Merits Inpatient Hospitalization: For Immediate Safety Inpatient DSM-V Dx: F30.2 Clinical Impression: Trevor is a 58-year-old man who has been diagnosed with at least two TBIs and 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 The braxton is reducing at this time. Plan - Plan Treatment Plan: Name: SCOTT GIMENEZ Birthdate: 1960 [id number] 04/26/19 Trevor will be started on Abilify and lithium tonight. Risperdal was effective to calm him, but the long-term side effects of risperidone are undesirable. To treat braxton, we will use lithium, starting at 300 mg BID. To treat psychosis, we will use Abilify 5 mg. In addition, we will add Ativan PRN for anxiety and agitation and sleep. 04/29/19 Trevor will continue with medications as ordered. He is being considered for increased Abilify. A lithium level will be drawn in the morning. 04/30/19 Abilify to increase to 10 mg tonight. [place] level to be drawn tomorrow (Trevor is agreeable to this). Possibly increase lithium tomorrow. 05/01/19 Increase lithium to 300 QAM 600 QHS, as lithium level was <0.4. Change Topamax times at Trevor's request as he believes this will more adequately block headaches. He has been encouraged to try to sleep. 05/03/19 Change from Abilify to Seroquel. Abilify does not seem to be potent enough to reduce Trevor's braxton or cause him to sleep. Duloxetine was removed from his medications, as well. 05/06/19 Seroquel has helped. Ordered losenges for sore throat. Will continue to monitor for behavior changes. Will draw lithium tomorrow for another level. Continued Medication Management: Different Medication Medications: Current Medications Acetaminophen (Tylenol Tab*) 650 mg PO Q4H PRN PRN Reason: for pain; or Temp >101 F Last Admin: 05/05/19 11:49 Dose: 650 mg Al Hydrox/Mg Hydrox/Simethicone (Maalox Plus*) 30 ml PO Q4H PRN PRN Reason: INDIGESTION Last Admin: 04/30/19 00:16 Dose: 30 ml Atorvastatin Calcium (Lipitor*) 20 mg PO DAILY [facility] Last Admin: 05/06/19 08:13 Dose: 20 mg Buspirone HCl (Buspar Tab*) 10 mg PO TID [facility] Last Admin: 05/06/19 08:10 Dose: 10 mg Celecoxib (Celebrex Cap*) 100 mg PO BID [facility] Last Admin: 05/06/19 08:10 Dose: 100 mg Cetirizine HCl (Zyrtec*) 10 mg PO DAILY [facility] Last Admin: 05/06/19 08:13 Dose: 10 mg Diclofenac Sodium (Voltaren 1% Gel (Nf)) 1 applic TOPICAL DAILY PRN; Protocol PRN Reason: PAIN - MILD Last Admin: 05/03/19 08:35 Dose: 1 dose Docusate Sodium (Colace Cap*) 200 mg PO DAILY PRN PRN Reason: CONSTIPATION Fluticasone Propionate (Flonase Nasal [place] 50mcg*) 2 spray BOTH NARES DAILY [facility] Last Admin: 05/06/19 08:15 Dose: 2 spray Gabapentin (Neurontin Cap(*)) 300 mg PO BEDTIME [facility] Last Admin: 05/05/19 20:32 Dose: 300 mg Levalbuterol HCl (Xopenex Hfa Inhaler*) 2 puff INH Q6H PRN PRN Reason: SHORTNESS OF BREATH Last Admin: 05/05/19 07:59 Dose: 2 puff Lidocaine (Xylocaine 5% Oint*) 1 applic TOPICAL DAILY PRN PRN Reason: TO HANDS Last Admin: 05/05/19 14:40 Dose: 1 applic Lisinopril (Prinivil Tab*) 20 mg PO QAM [facility] Last Admin: 05/06/19 08:11 Dose: 20 mg [place] Carbonate ([place] Carbonate Tab*) 600 mg PO BEDTIME [facility] Last Admin: 05/05/19 20:32 Dose: 600 mg [place] Carbonate ([place] Carbonate Tab*) 300 mg PO DAILY [facility] Last Admin: 05/06/19 08:13 Dose: 300 mg Lorazepam (Ativan Tab(*)) 1 mg PO 0800,1200,1700,2100 [facility] Last Admin: 05/06/19 12:08 Dose: 1 mg Multivitamins (Theragran Tab*) 1 tab PO DAILY [facility] Last Admin: 05/06/19 08:13 Dose: 1 tab Pantoprazole Sodium (Protonix Tab*) 40 mg PO DAILY [facility] Last Admin: 05/06/19 08:13 Dose: 40 mg Phenyleph/Shark Oil/Min Oil/Petrol (Preparation H*) 1 applic [place] QID PRN PRN Reason: hemorrhoid pain Quetiapine Fumarate (Seroquel Tab*) 300 mg PO BEDTIME [facility] Last Admin: 05/05/19 20:31 Dose: 300 mg Throat Lozenges (Chloraseptic [place]*) 1 esther PO Q6H PRN PRN Reason: SORE THROAT Topiramate (Topamax(*)) 50 mg PO 0900,1700 [facility] Last Admin: 05/06/19 08:11 Dose: 50 mg - Discharge Plan Discharge Plan: Outpatient Follow Up Outpatient Program: [facility]
[2019-05-06] MEDS: Benzocaine/Menthol LOZ* 1 LOZENGE PO PRN ×2 (13:58→21:16)
[2019-05-06] MEDS: Acetaminophen TAB* 325 MG PO PRN ×2 (13:59→21:15)
[2019-05-06] MEDS: Gabapentin CAP(*) 300 MG PO SCH (21:13)
[2019-05-06] MEDS: QUEtiapine TAB* 300 MG PO SCH (22:14)
[2019-05-07] MEDS: Acetaminophen TAB* 325 MG PO PRN ×2 (03:43→16:35)
[2019-05-07] MEDS: Benzocaine/Menthol LOZ* 1 LOZENGE PO PRN ×2 (07:40→17:37)
[2019-05-07] MEDS: busPIRone TAB* 10 MG PO SCH ×3 (08:08→20:30)
[2019-05-07] MEDS: Atorvastatin* 20 MG TAB PO SCH (08:08)
[2019-05-07] MEDS: celeCOXIB CAP* 100 MG PO SCH ×2 (08:08→20:30)
[2019-05-07] MEDS: Lisinopril TAB* 10 MG PO SCH (08:08)
[2019-05-07] MEDS: Pantoprazole TAB * 40 MG TAB PO SCH (08:09)
[2019-05-07] MEDS: Lithium Carbonate TAB* 300 MG PO SCH ×2 (08:09→20:32)
[2019-05-07] MEDS: Vitamin THERAPEUTIC TAB PO SCH (08:09)
[2019-05-07] MEDS: Topiramate TAB(*) 25 MG PO SCH ×2 (08:10→16:31)
[2019-05-07] MEDS: Cetirizine* 10 MG TAB PO SCH (08:10)
[2019-05-07] MEDS: Fluticasone NASAL SPRAY 50MCG* 16 gm SPRAY BTL BOTH NARES SCH (08:11)
[2019-05-07] MEDS: LORazepam TAB(*) 1 MG PO SCH ×4 (08:12→20:29)
[2019-05-07] MEDS: Lidocaine 5% OINT* TUBE TOPICAL PRN (14:32)
--- NOTE | 2019-05-07 15:36 | PN ---
Subjective - Subjective Date of Service: 05/07/19 Service Type: [id number] Hosp care 35 min high complexity Subjective: Trevor remains hyperverbal and continues to find multiple creative use for items that will assist his hand health and will keep his belongings from his roommate's. He is agreeable to taking more Seroquel (increasing to 400 mg at night) and adding 50 mg twice a day to help with his anxiety and racing thoughts. He did not want these to be PRN. Objective - General Observations Appearance: Neat Appears Stated Age: Yes Stature: WNL Posture: Atypical Eye Contact: Intense Behavior/Activity: Peculiar, Impulsive - Interaction Observations Attitude Towards Examiner: Cooperative, Anxious Stated Mood: Elevated Affect: Bright Speech Pattern/Tone: Clear Thought Process: Goal Directed Perception: WNL Thought Content: Grandiose Hallucination Type: Denies Delusion Type: Denies - Cognitive Function Orientation: A&O x 4 Level of Consciousness: Awake, Alert, Appropriate Cognition: Impaired Cognition, Impaired Attention/Concentration Estimated Intelligence: Normal Insight: Difficulty Acknowledging Presence of Psyciatric Problems Judgment Within Normal Limits: No Ability to Make Reasonable Decisions: Moderately Impaired - Medication Compliance Cooperative with Inpatient Medication Regimen: Yes - Group Participation Participates in Group Activities: Partial Assessment - Assessment Inpatient DSM-V Dx: F30.2 Clinical Impression: Trevor is a 58-year-old man who has been diagnosed with at least two TBIs and 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 The braxton is reducing at this time. Plan - Plan Treatment Plan: Name: SCOTT GIMENEZ Birthdate: 1960 [id number] 04/26/19 Trevor will be started on Abilify and lithium tonight. Risperdal was effective to calm him, but the long-term side effects of risperidone are undesirable. To treat braxton, we will use lithium, starting at 300 mg BID. To treat psychosis, we will use Abilify 5 mg. In addition, we will add Ativan PRN for anxiety and agitation and sleep. 04/29/19 Trevor will continue with medications as ordered. He is being considered for increased Abilify. A lithium level will be drawn in the morning. 04/30/19 Abilify to increase to 10 mg tonight. [place] level to be drawn tomorrow (Trevor is agreeable to this). Possibly increase lithium tomorrow. 05/01/19 Increase lithium to 300 QAM 600 QHS, as lithium level was <0.4. Change Topamax times at Trevor's request as he believes this will more adequately block headaches. He has been encouraged to try to sleep. 05/03/19 Change from Abilify to Seroquel. Abilify does not seem to be potent enough to reduce Trevor's braxton or cause him to sleep. Duloxetine was removed from his medications, as well. 05/06/19 Seroquel has helped. Ordered losenges for sore throat. Will continue to monitor for behavior changes. Will draw lithium tomorrow for another level. Medications: Current Medications Acetaminophen (Tylenol Tab*) 650 mg PO Q4H PRN PRN Reason: for pain; or Temp >101 F Last Admin: 05/07/19 03:43 Dose: 650 mg Al Hydrox/Mg Hydrox/Simethicone (Maalox Plus*) 30 ml PO Q4H PRN PRN Reason: INDIGESTION Last Admin: 04/30/19 00:16 Dose: 30 ml Atorvastatin Calcium (Lipitor*) 20 mg PO DAILY [facility] Last Admin: 05/07/19 08:08 Dose: 20 mg Buspirone HCl (Buspar Tab*) 10 mg PO TID [facility] Last Admin: 05/07/19 14:30 Dose: 10 mg Celecoxib (Celebrex Cap*) 100 mg PO BID [facility] Last Admin: 05/07/19 08:08 Dose: 100 mg Cetirizine HCl (Zyrtec*) 10 mg PO DAILY [facility] Last Admin: 05/07/19 08:10 Dose: 10 mg Diclofenac Sodium (Voltaren 1% Gel (Nf)) 1 applic TOPICAL DAILY PRN; Protocol PRN Reason: PAIN - MILD Last Admin: 05/03/19 08:35 Dose: 1 dose Docusate Sodium (Colace Cap*) 200 mg PO DAILY PRN PRN Reason: CONSTIPATION Fluticasone Propionate (Flonase Nasal [place] 50mcg*) 2 spray BOTH NARES DAILY [facility] Last Admin: 05/07/19 08:11 Dose: 2 spray Gabapentin (Neurontin Cap(*)) 300 mg PO BEDTIME [facility] Last Admin: 05/06/19 21:13 Dose: 300 mg Levalbuterol HCl (Xopenex Hfa Inhaler*) 2 puff INH Q6H PRN PRN Reason: SHORTNESS OF BREATH Last Admin: 05/05/19 07:59 Dose: 2 puff Lidocaine (Xylocaine 5% Oint*) 1 applic TOPICAL DAILY PRN PRN Reason: TO HANDS Last Admin: 05/07/19 14:32 Dose: 1 applic Lisinopril (Prinivil Tab*) 20 mg PO QAM [facility] Last Admin: 05/07/19 08:08 Dose: 20 mg [place] Carbonate ([place] Carbonate Tab*) 600 mg PO BEDTIME [facility] Last Admin: 05/06/19 21:12 Dose: 600 mg [place] Carbonate ([place] Carbonate Tab*) 300 mg PO DAILY [facility] Last Admin: 05/07/19 08:09 Dose: 300 mg Lorazepam (Ativan Tab(*)) 1 mg PO 0800,1200,1700,2100 [facility] Last Admin: 05/07/19 14:30 Dose: 1 mg Multivitamins (Theragran Tab*) 1 tab PO DAILY [facility] Last Admin: 05/07/19 08:09 Dose: 1 tab Pantoprazole Sodium (Protonix Tab*) 40 mg PO DAILY [facility] Last Admin: 05/07/19 08:09 Dose: 40 mg Phenyleph/Shark Oil/Min Oil/Petrol (Preparation H*) 1 applic [place] QID PRN PRN Reason: hemorrhoid pain Quetiapine Fumarate (Seroquel Tab*) 50 mg PO 0900,1400 [facility] Quetiapine Fumarate (Seroquel Tab*) 400 mg PO BEDTIME [facility] Throat Lozenges (Chloraseptic Esther*) 1 esther PO Q6H PRN PRN Reason: SORE THROAT Last Admin: 05/07/19 07:40 Dose: 1 esther Topiramate (Topamax(*)) 50 mg PO 0900,1700 [facility] Last Admin: 05/07/19 08:10 Dose: 50 mg
[2019-05-07] MEDS: QUEtiapine TAB* 25 MG PO SCH (16:32)
[2019-05-07] MEDS: Gabapentin CAP(*) 300 MG PO SCH (20:31)
[2019-05-07] MEDS: QUEtiapine TAB* 100 MG PO SCH (20:32)
[2019-05-07] MEDS: QUEtiapine TAB* 300 MG PO SCH (20:32)
[2019-05-07] MEDS ORDERED: QUEtiapine TAB* 300 MG PO SCH (21:00)
[2019-05-07] MEDS: DICLOFENAC 1% TOPICAL PRN (22:04)
[2019-05-08] MEDS: Benzocaine/Menthol LOZ* 1 LOZENGE PO PRN (07:21)
[2019-05-08] MEDS: busPIRone TAB* 10 MG PO SCH ×3 (08:09→21:44)
[2019-05-08] MEDS: Atorvastatin* 20 MG TAB PO SCH (08:10)
[2019-05-08] MEDS: Pantoprazole TAB * 40 MG TAB PO SCH (08:10)
[2019-05-08] MEDS: Cetirizine* 10 MG TAB PO SCH (08:10)
[2019-05-08] MEDS: celeCOXIB CAP* 100 MG PO SCH ×2 (08:11→21:44)
[2019-05-08] MEDS: Vitamin THERAPEUTIC TAB PO SCH (08:11)
[2019-05-08] MEDS: QUEtiapine TAB* 25 MG PO SCH ×2 (08:11→17:01)
[2019-05-08] MEDS: Lisinopril TAB* 10 MG PO SCH (08:12)
[2019-05-08] MEDS: Lithium Carbonate TAB* 300 MG PO SCH ×2 (08:13→21:42)
[2019-05-08] MEDS: Topiramate TAB(*) 25 MG PO SCH ×2 (08:13→17:01)
[2019-05-08] MEDS: LORazepam TAB(*) 1 MG PO SCH (08:17)
[2019-05-08] MEDS: Fluticasone NASAL SPRAY 50MCG* 16 gm SPRAY BTL BOTH NARES SCH (08:18)
[2019-05-08] MEDS: DICLOFENAC 1% TOPICAL PRN (08:19)
[2019-05-08] MEDS: Levalbuterol HFA INHALER* 1 PUFF MDI INH PRN (08:22)
[2019-05-08] MEDS ORDERED: LORazepam TAB(*) 1 MG PO SCH (12:00)
[2019-05-08] MEDS ORDERED: LORazepam TAB(*) 1 MG PO PRN (15:43)
--- NOTE | 2019-05-08 16:33 | PN ---
Subjective - Subjective Date of Service: 05/08/19 Service Type: [id number] Hosp care 25 min moderate complexity Subjective: Trevor continues to improve. He remains hyperverbal and has grandiose dreams about what he can accomplish to help people and is enlisting the help of others to help him achieve his goals. Trevor began stumbling last night after the administration of Seroquel 400 mg. He agrees today to take it and go straight to bed, which is how he used to take his medications at home, anyway. Also, I discontinued the bedtime Ativan for tonight. Trevor is interested/anxious about his medication timing and was given the printout of his MAR so that he could keep up with when his medications were to be administered. Trevor also disclosed that he has had a sore throat since December and that he sees spots in his throat. A strep culture was ordered. Trevor also requested eye glasses for reading. Objective - General Observations Appearance: Disheveled Appears Stated Age: Yes Stature: WNL Posture: WNL Eye Contact: Intense Behavior/Activity: Accelerated, Peculiar - Interaction Observations Attitude Towards Examiner: Cooperative, Anxious Stated Mood: Elevated, Euthymic Affect: Bright Speech Pattern/Tone: Clear, Normal Volume, Rambling, Excessive Thought Process: Goal Directed, Circumstantial Perception: WNL Thought Content: Preoccupation/Ruminations, Grandiose Hallucination Type: None Delusion Type: Denies, Somatic - Cognitive Function Level of Consciousness: Awake, Alert, Appropriate Cognition: Impaired Cognition, Impaired Attention/Concentration Estimated Intelligence: Normal Insight: Difficulty Acknowledging Presence of Psyciatric Problems Judgment Within Normal Limits: No Ability to Make Reasonable Decisions: Moderately Impaired - Medication Compliance Cooperative with Inpatient Medication Regimen: Yes - Group Participation Participates in Group Activities: Yes Assessment - Assessment Merits Inpatient Hospitalization: For Immediate Safety Inpatient DSM-V Dx: F30.2 Clinical Impression: Trevor is a 58-year-old man who has been diagnosed with at least two TBIs and 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 The braxton is reducing at this time and the psychosis is remitting. Plan - Plan Treatment Plan: Name: SCOTT GIMENEZ Birthdate: 1960 [id number] 04/26/19 Trevor will be started on Abilify and lithium tonight. Risperdal was effective to calm him, but the long-term side effects of risperidone are undesirable. To treat braxton, we will use lithium, starting at 300 mg BID. To treat psychosis, we will use Abilify 5 mg. In addition, we will add Ativan PRN for anxiety and agitation and sleep. 04/29/19 Trevor will continue with medications as ordered. He is being considered for increased Abilify. A lithium level will be drawn in the morning. 04/30/19 Abilify to increase to 10 mg tonight. [place] level to be drawn tomorrow (Trevor is agreeable to this). Possibly increase lithium tomorrow. 05/01/19 Increase lithium to 300 QAM 600 QHS, as lithium level was <0.4. Change Topamax times at Trevor's request as he believes this will more adequately block headaches. He has been encouraged to try to sleep. 05/03/19 Change from Abilify to Seroquel. Abilify does not seem to be potent enough to reduce Trevor's braxton or cause him to sleep. Duloxetine was removed from his medications, as well. 05/06/19 Seroquel has helped. Ordered losenges for sore throat. Will continue to monitor for behavior changes. Will draw lithium tomorrow for another level. 05/08/19 Seroquel 50 BID was added yesterday and was increased at bedtime to 400 mg. Ativan is decreased today to 1 mg ESRGE and 1 mg PRN from 1 mg QID SERGE. [place] level was 0.68. Continued Medication Management: Different Medication Medications: Current Medications Acetaminophen (Tylenol Tab*) 650 mg PO Q4H PRN PRN Reason: for pain; or Temp >101 F Last Admin: 05/07/19 16:35 Dose: 650 mg Al Hydrox/Mg Hydrox/Simethicone (Maalox Plus*) 30 ml PO Q4H PRN PRN Reason: INDIGESTION Last Admin: 04/30/19 00:16 Dose: 30 ml Atorvastatin Calcium (Lipitor*) 20 mg PO DAILY [facility] Last Admin: 05/08/19 08:10 Dose: 20 mg Buspirone HCl (Buspar Tab*) 10 mg PO TID [facility] Last Admin: 05/08/19 14:00 Dose: 10 mg Celecoxib (Celebrex Cap*) 100 mg PO BID [facility] Last Admin: 05/08/19 08:11 Dose: 100 mg Cetirizine HCl (Zyrtec*) 10 mg PO DAILY [facility] Last Admin: 05/08/19 08:10 Dose: 10 mg Diclofenac Sodium (Voltaren 1% Gel (Nf)) 1 applic TOPICAL DAILY PRN; Protocol PRN Reason: PAIN - MILD Last Admin: 05/08/19 08:19 Dose: 1 dose Docusate Sodium (Colace Cap*) 200 mg PO DAILY PRN PRN Reason: CONSTIPATION Fluticasone Propionate (Flonase Nasal [place] 50mcg*) 2 spray BOTH NARES DAILY [facility] Last Admin: 05/08/19 08:18 Dose: 2 spray Gabapentin (Neurontin Cap(*)) 300 mg PO BEDTIME [facility] Last Admin: 05/07/19 20:31 Dose: 300 mg Levalbuterol HCl (Xopenex Hfa Inhaler*) 2 puff INH Q6H PRN PRN Reason: SHORTNESS OF BREATH Last Admin: 05/08/19 08:22 Dose: 2 puff Lidocaine (Xylocaine 5% Oint*) 1 applic TOPICAL DAILY PRN PRN Reason: TO HANDS Last Admin: 05/07/19 14:32 Dose: 1 applic Lisinopril (Prinivil Tab*) 20 mg PO QAM [facility] Last Admin: 05/08/19 08:12 Dose: 20 mg [place] Carbonate ([place] Carbonate Tab*) 600 mg PO BEDTIME [facility] Last Admin: 05/07/19 20:32 Dose: 600 mg [place] Carbonate ([place] Carbonate Tab*) 300 mg PO DAILY [facility] Last Admin: 05/08/19 08:13 Dose: 300 mg Lorazepam (Ativan Tab(*)) 1 mg PO BEDTIME PRN PRN Reason: insomnia Lorazepam (Ativan Tab(*)) 1 mg PO 1200 [facility] Multivitamins (Theragran Tab*) 1 tab PO DAILY [facility] Last Admin: 05/08/19 08:11 Dose: 1 tab Pantoprazole Sodium (Protonix Tab*) 40 mg PO DAILY [facility] Last Admin: 05/08/19 08:10 Dose: 40 mg Phenyleph/Shark Oil/Min Oil/Petrol (Preparation H*) 1 applic [place] QID PRN PRN Reason: hemorrhoid pain Quetiapine Fumarate (Seroquel Tab*) 300 mg PO BEDTIME [facility] Last Admin: 05/07/19 20:32 Dose: 300 mg Quetiapine Fumarate (Seroquel Tab*) 100 mg PO BEDTIME [facility] Last Admin: 05/07/19 20:32 Dose: 100 mg Quetiapine Fumarate (Seroquel Tab*) 50 mg PO 0900,1700 [facility] Throat Lozenges (Chloraseptic Esther*) 1 esther PO Q6H PRN PRN Reason: SORE THROAT Last Admin: 05/08/19 07:21 Dose: 1 esther Topiramate (Topamax(*)) 50 mg PO 0900,1700 [facility] Last Admin: 05/08/19 08:13 Dose: 50 mg - Discharge Plan Discharge Plan: Outpatient Follow Up Outpatient Program: Maria Guadalupe [facility]
[2019-05-08 18:08] LABS: Rapid Strep Molecular Negative (Negative)
[2019-05-08] MEDS: QUEtiapine TAB* 100 MG PO SCH (21:43)
[2019-05-08] MEDS: QUEtiapine TAB* 300 MG PO SCH (21:43)
[2019-05-08] MEDS: Gabapentin CAP(*) 300 MG PO SCH (21:43)
[2019-05-09] MEDS: Fluticasone NASAL SPRAY 50MCG* 16 gm SPRAY BTL BOTH NARES SCH (08:47)
[2019-05-09] MEDS: celeCOXIB CAP* 100 MG PO SCH ×2 (08:47→21:13)
[2019-05-09] MEDS: busPIRone TAB* 10 MG PO SCH ×3 (08:48→21:11)
[2019-05-09] MEDS: Vitamin THERAPEUTIC TAB PO SCH (08:48)
[2019-05-09] MEDS: Lisinopril TAB* 10 MG PO SCH (08:48)
[2019-05-09] MEDS: Pantoprazole TAB * 40 MG TAB PO SCH (08:49)
[2019-05-09] MEDS: Lithium Carbonate TAB* 300 MG PO SCH ×2 (08:49→21:11)
[2019-05-09] MEDS: Cetirizine* 10 MG TAB PO SCH (08:49)
[2019-05-09] MEDS: QUEtiapine TAB* 25 MG PO SCH ×2 (08:50→16:50)
[2019-05-09] MEDS: Atorvastatin* 20 MG TAB PO SCH (08:50)
[2019-05-09] MEDS: Topiramate TAB(*) 25 MG PO SCH ×2 (08:51→16:50)
[2019-05-09] MEDS: Benzocaine/Menthol LOZ* 1 LOZENGE PO PRN (09:34)
--- NOTE | 2019-05-09 13:04 | PN ---
BSU: Group Therapy Note - Service Type Service Type: [id number] Group Psychotherapy - Cognitive Behavioral Group Therapy ( CBT):Patient was attentive and participatory in CBT programming this morning, and remained in good behavioral control. Patient expressed positive insights regarding relevant treatment interventions and goals.
[2019-05-09] MEDS: LORazepam TAB(*) 1 MG PO SCH (13:55)
[2019-05-09] MEDS: DICLOFENAC 1% TOPICAL PRN (13:58)
[2019-05-09] MEDS: Gabapentin CAP(*) 300 MG PO SCH (21:12)
[2019-05-09] MEDS: QUEtiapine TAB* 100 MG PO SCH (21:13)
[2019-05-09] MEDS: QUEtiapine TAB* 300 MG PO SCH (21:13)
[2019-05-09] MEDS: Acetaminophen TAB* 325 MG PO PRN (21:14)
[2019-05-10] MEDS: DICLOFENAC 1% TOPICAL PRN (06:14)
[2019-05-10] MEDS: celeCOXIB CAP* 100 MG PO SCH ×2 (08:44→22:10)
[2019-05-10] MEDS: Cetirizine* 10 MG TAB PO SCH (08:45)
[2019-05-10] MEDS: Pantoprazole TAB * 40 MG TAB PO SCH (08:45)
[2019-05-10] MEDS: Lisinopril TAB* 10 MG PO SCH (08:45)
[2019-05-10] MEDS: Vitamin THERAPEUTIC TAB PO SCH (08:45)
[2019-05-10] MEDS: busPIRone TAB* 10 MG PO SCH ×3 (08:45→22:10)
[2019-05-10] MEDS: Atorvastatin* 20 MG TAB PO SCH (08:45)
[2019-05-10] MEDS: QUEtiapine TAB* 25 MG PO SCH ×2 (08:45→17:22)
[2019-05-10] MEDS: Topiramate TAB(*) 25 MG PO SCH ×2 (08:46→17:23)
[2019-05-10] MEDS: Lithium Carbonate TAB* 300 MG PO SCH ×2 (08:46→22:12)
[2019-05-10] MEDS: Fluticasone NASAL SPRAY 50MCG* 16 gm SPRAY BTL BOTH NARES SCH (08:47)
[2019-05-10] MEDS: Benzocaine/Menthol LOZ* 1 LOZENGE PO PRN (10:20)
--- NOTE | 2019-05-10 11:07 | PN ---
BSU: Group Therapy Note - Service Type Service Type: [id number] Group Psychotherapy - Cognitive Behavioral Group Therapy ( CBT):Patient was attentive and participatory in CBT programming this morning, and remained in good behavioral control. Patient expressed positive insights regarding relevant treatment interventions and goals.
[2019-05-10] MEDS: Acetaminophen TAB* 325 MG PO PRN (11:56)
[2019-05-10] MEDS: LORazepam TAB(*) 1 MG PO SCH (12:21)
[2019-05-10] MEDS ORDERED: QUEtiapine TAB* 25 MG PO PRN (14:33)
--- NOTE | 2019-05-10 14:41 | PN ---
Subjective - Subjective Date of Service: 05/10/19 Service Type: [id number] Hosp care 15 min low complexity Subjective: Trevor is happy to hear that he will be going home Monday or Monday. He is eager to go home, but he is also happy to stay long enough to not "backslide," as he calls it. 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 He is agreeable to almost anything and remains hypomanic. Objective - General Observations Appearance: Disheveled Appears Stated Age: Yes Stature: WNL Posture: WNL Eye Contact: Intense Behavior/Activity: Peculiar - Interaction Observations Attitude Towards Examiner: Cooperative, Anxious Stated Mood: Expansive Affect: Full, Bright Speech Pattern/Tone: Clear, Excessive Thought Process: Coherent Perception: WNL Thought Content: Grandiose Hallucination Type: None Delusion Type: None - Cognitive Function Orientation: A&O x 4 Level of Consciousness: Awake, Alert, Appropriate Cognition: WNL Estimated Intelligence: Normal Insight: Difficulty Acknowledging Presence of Psyciatric Problems Judgment Within Normal Limits: No Ability to Make Reasonable Decisions: Mildly Impaired - Medication Compliance Cooperative with Inpatient Medication Regimen: Yes - Group Participation Participates in Group Activities: Yes Assessment - Assessment Merits Inpatient Hospitalization: For Immediate Safety Inpatient DSM-V Dx: F30.2 Clinical Impression: Trevor is a 58-year-old man who has been diagnosed with at least two TBIs and is now displaying symptoms consistent with rbaxton with psychotic features. The braxton is reducing at this time and the psychosis has remitted. Plan - Plan Treatment Plan: Name: SCOTT GIMENEZ Birthdate: 1960 [id number] 04/26/19 Trevor will be started on Abilify and lithium tonight. Risperdal was effective to calm him, but the long-term side effects of risperidone are undesirable. To treat braxton, we will use lithium, starting at 300 mg BID. To treat psychosis, we will use Abilify 5 mg. In addition, we will add Ativan PRN for anxiety and agitation and sleep. 04/29/19 Trevor will continue with medications as ordered. He is being considered for increased Abilify. A lithium level will be drawn in the morning. 04/30/19 Abilify to increase to 10 mg tonight. [place] level to be drawn tomorrow (Trevor is agreeable to this). Possibly increase lithium tomorrow. 05/01/19 Increase lithium to 300 QAM 600 QHS, as lithium level was <0.4. Change Topamax times at Trevor's request as he believes this will more adequately block headaches. He has been encouraged to try to sleep. 05/03/19 Change from Abilify to Seroquel. Abilify does not seem to be potent enough to reduce Trevor's braxton or cause him to sleep. Duloxetine was removed from his medications, as well. 05/06/19 Seroquel has helped. Ordered losenges for sore throat. Will continue to monitor for behavior changes. Will draw lithium tomorrow for another level. 05/08/19 Seroquel 50 BID was added yesterday and was increased at bedtime to 400 mg. Ativan is decreased today to 1 mg SERGE and 1 mg PRN from 1 mg QID SERGE. [place] level was 0.68. 05/10/19 Added a PRN dose of Seroquel 50 in case he awakens and can't get back to sleep. Plan on discharge Monday or Monday. Medications: Current Medications Acetaminophen (Tylenol Tab*) 650 mg PO Q4H PRN PRN Reason: for pain; or Temp >101 F Last Admin: 05/10/19 11:56 Dose: 650 mg Al Hydrox/Mg Hydrox/Simethicone (Maalox Plus*) 30 ml PO Q4H PRN PRN Reason: INDIGESTION Last Admin: 04/30/19 00:16 Dose: 30 ml Atorvastatin Calcium (Lipitor*) 20 mg PO DAILY [facility] Last Admin: 05/10/19 08:45 Dose: 20 mg Buspirone HCl (Buspar Tab*) 10 mg PO TID [facility] Last Admin: 05/10/19 08:45 Dose: 10 mg Celecoxib (Celebrex Cap*) 100 mg PO BID [facility] Last Admin: 05/10/19 08:44 Dose: 100 mg Cetirizine HCl (Zyrtec*) 10 mg PO DAILY [facility] Last Admin: 05/10/19 08:45 Dose: 10 mg Diclofenac Sodium (Voltaren 1% Gel (Nf)) 1 applic TOPICAL DAILY PRN; Protocol PRN Reason: PAIN - MILD Last Admin: 05/10/19 06:14 Dose: 1 dose Docusate Sodium (Colace Cap*) 200 mg PO DAILY PRN PRN Reason: CONSTIPATION Fluticasone Propionate (Flonase Nasal [place] 50mcg*) 2 spray BOTH NARES DAILY [facility] Last Admin: 05/10/19 08:47 Dose: 2 spray Gabapentin (Neurontin Cap(*)) 300 mg PO BEDTIME [facility] Last Admin: 05/09/19 21:12 Dose: 300 mg Levalbuterol HCl (Xopenex Hfa Inhaler*) 2 puff INH Q6H PRN PRN Reason: SHORTNESS OF BREATH Last Admin: 05/08/19 08:22 Dose: 2 puff Lidocaine (Xylocaine 5% Oint*) 1 applic TOPICAL DAILY PRN PRN Reason: TO HANDS Last Admin: 05/07/19 14:32 Dose: 1 applic Lisinopril (Prinivil Tab*) 20 mg PO QAM [facility] Last Admin: 05/10/19 08:45 Dose: 20 mg [place] Carbonate ([place] Carbonate Tab*) 600 mg PO BEDTIME [facility] Last Admin: 05/09/19 21:11 Dose: 600 mg [place] Carbonate ([place] Carbonate Tab*) 300 mg PO DAILY [facility] Last Admin: 05/10/19 08:46 Dose: 300 mg Lorazepam (Ativan Tab(*)) 1 mg PO BEDTIME PRN PRN Reason: insomnia Lorazepam (Ativan Tab(*)) 1 mg PO 1200 [facility] Last Admin: 05/10/19 12:21 Dose: 1 mg Multivitamins (Theragran Tab*) 1 tab PO DAILY [facility] Last Admin: 05/10/19 08:45 Dose: 1 tab Pantoprazole Sodium (Protonix Tab*) 40 mg PO DAILY [facility] Last Admin: 05/10/19 08:45 Dose: 40 mg Phenyleph/Shark Oil/Min Oil/Petrol (Preparation H*) 1 applic [place] QID PRN PRN Reason: hemorrhoid pain Quetiapine Fumarate (Seroquel Tab*) 300 mg PO BEDTIME [facility] Last Admin: 05/09/19 21:13 Dose: 300 mg Quetiapine Fumarate (Seroquel Tab*) 100 mg PO BEDTIME [facility] Last Admin: 05/09/19 21:13 Dose: 100 mg Quetiapine Fumarate (Seroquel Tab*) 50 mg PO 0900,1700 [facility] Last Admin: 05/10/19 08:45 Dose: 50 mg Quetiapine Fumarate (Seroquel Tab*) 50 mg PO DAILY PRN PRN Reason: AGITATION/ANXIETY/INSOMNIA Throat Lozenges (Chloraseptic [place]*) 1 esther PO Q6H PRN PRN Reason: SORE THROAT Last Admin: 05/10/19 10:20 Dose: 1 esther Topiramate (Topamax(*)) 50 mg PO 0900,1700 [facility] Last Admin: 05/10/19 08:46 Dose: 50 mg - Discharge Plan Discharge Plan: Outpatient Follow Up Outpatient Program: Maria Guadalupe [facility]
[2019-05-10] MEDS: Gabapentin CAP(*) 300 MG PO SCH (22:11)
[2019-05-10] MEDS: QUEtiapine TAB* 300 MG PO SCH (22:12)
[2019-05-10] MEDS: QUEtiapine TAB* 100 MG PO SCH (22:13)
[2019-05-11] MEDS: Benzocaine/Menthol LOZ* 1 LOZENGE PO PRN ×2 (05:23→13:56)
[2019-05-11] MEDS: Vitamin THERAPEUTIC TAB PO SCH (08:52)
[2019-05-11] MEDS: Lisinopril TAB* 10 MG PO SCH (08:52)
[2019-05-11] MEDS: Topiramate TAB(*) 25 MG PO SCH ×2 (08:53→16:53)
[2019-05-11] MEDS: Lithium Carbonate TAB* 300 MG PO SCH ×2 (08:53→20:39)
[2019-05-11] MEDS: Pantoprazole TAB * 40 MG TAB PO SCH (08:53)
[2019-05-11] MEDS: QUEtiapine TAB* 25 MG PO SCH ×2 (08:53→16:54)
[2019-05-11] MEDS: Cetirizine* 10 MG TAB PO SCH (08:54)
[2019-05-11] MEDS: Fluticasone NASAL SPRAY 50MCG* 16 gm SPRAY BTL BOTH NARES SCH (08:54)
[2019-05-11] MEDS: Atorvastatin* 20 MG TAB PO SCH (08:54)
[2019-05-11] MEDS: busPIRone TAB* 10 MG PO SCH ×3 (08:54→20:39)
[2019-05-11] MEDS: celeCOXIB CAP* 100 MG PO SCH ×2 (08:55→20:40)
[2019-05-11] MEDS: Levalbuterol HFA INHALER* 1 PUFF MDI INH PRN (08:55)
[2019-05-11] MEDS: LORazepam TAB(*) 1 MG PO SCH (12:38)
[2019-05-11] MEDS: DICLOFENAC 1% TOPICAL PRN (13:56)
[2019-05-11] MEDS: Lidocaine 5% OINT* TUBE TOPICAL PRN (17:06)
[2019-05-11] MEDS: Gabapentin CAP(*) 300 MG PO SCH (20:38)
[2019-05-11] MEDS: QUEtiapine TAB* 300 MG PO SCH (22:02)
[2019-05-11] MEDS: QUEtiapine TAB* 100 MG PO SCH (22:02)
[2019-05-12] MEDS: QUEtiapine TAB* 25 MG PO SCH ×2 (08:39→17:16)
[2019-05-12] MEDS: Vitamin THERAPEUTIC TAB PO SCH (08:39)
[2019-05-12] MEDS: Pantoprazole TAB * 40 MG TAB PO SCH (08:39)
[2019-05-12] MEDS: Cetirizine* 10 MG TAB PO SCH (08:39)
[2019-05-12] MEDS: Lisinopril TAB* 10 MG PO SCH (08:39)
[2019-05-12] MEDS: Topiramate TAB(*) 25 MG PO SCH ×2 (08:40→17:16)
[2019-05-12] MEDS: Atorvastatin* 20 MG TAB PO SCH (08:40)
[2019-05-12] MEDS: Lithium Carbonate TAB* 300 MG PO SCH ×2 (08:40→21:00)
[2019-05-12] MEDS: Fluticasone NASAL SPRAY 50MCG* 16 gm SPRAY BTL BOTH NARES SCH (08:41)
[2019-05-12] MEDS: celeCOXIB CAP* 100 MG PO SCH ×2 (08:41→21:00)
[2019-05-12] MEDS: Levalbuterol HFA INHALER* 1 PUFF MDI INH PRN (08:41)
[2019-05-12] MEDS: busPIRone TAB* 10 MG PO SCH ×3 (08:42→21:00)
[2019-05-12] MEDS: DICLOFENAC 1% TOPICAL PRN (08:44)
[2019-05-12] MEDS: LORazepam TAB(*) 1 MG PO SCH (11:55)
[2019-05-12] MEDS: Acetaminophen TAB* 325 MG PO PRN (11:55)
[2019-05-12] MEDS: Benzocaine/Menthol LOZ* 1 LOZENGE PO PRN (13:39)
[2019-05-12] MEDS: Gabapentin CAP(*) 300 MG PO SCH (21:00)
[2019-05-12] MEDS: QUEtiapine TAB* 100 MG PO SCH (22:16)
[2019-05-12] MEDS: QUEtiapine TAB* 300 MG PO SCH (22:16)
[2019-05-13 08:53] VITALS: BP 126/71
[2019-05-13] MEDS: busPIRone TAB* 10 MG PO SCH (09:09)
[2019-05-13] MEDS: QUEtiapine TAB* 25 MG PO SCH (09:09)
[2019-05-13] MEDS: Pantoprazole TAB * 40 MG TAB PO SCH (09:09)
[2019-05-13] MEDS: Lisinopril TAB* 10 MG PO SCH (09:09)
[2019-05-13] MEDS: Lithium Carbonate TAB* 300 MG PO SCH (09:09)
[2019-05-13] MEDS: Vitamin THERAPEUTIC TAB PO SCH (09:09)
[2019-05-13] MEDS: Cetirizine* 10 MG TAB PO SCH (09:10)
[2019-05-13] MEDS: Atorvastatin* 20 MG TAB PO SCH (09:10)
[2019-05-13] MEDS: celeCOXIB CAP* 100 MG PO SCH (09:10)
[2019-05-13] MEDS: Topiramate TAB(*) 25 MG PO SCH (09:10)
[2019-05-13] MEDS: Fluticasone NASAL SPRAY 50MCG* 16 gm SPRAY BTL BOTH NARES SCH (09:11)
[2019-05-13] MEDS: Levalbuterol HFA INHALER* 1 PUFF MDI INH PRN (09:13)
--- NOTE | 2019-05-13 11:18 | PN ---
BSU: Group Therapy Note - Service Type Service Type: [id number] Group Psychotherapy - Cognitive Behavioral Group Therapy ( CBT):Patient was attentive and participatory in CBT programming this morning, and remained in good behavioral control. Patient expressed positive insights regarding relevant treatment interventions and goals.
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
== END 2019-05-13 12:50 | disposition home or self-care (01) | DRG 885 ==
LOC: ED 11:28 → BSU 14:36 → ED 16:36 → BSU 05-02 23:42
PROVIDERS: ADMIT Psychiatry & Neurology Psychiatry; ATTEND Psychiatry & Neurology Psychiatry
PROC: GZHZZZZ Group Psychotherapy (ICD-10-PCS; principal; 2019-05-01)
DX: F30.2 Manic episode, severe with psychotic symptoms (principal); I10 Essential (primary) hypertension; J45.909 Unspecified asthma, uncomplicated; G47.30 Sleep apnea, unspecified; K21.9 Gastro-esophageal reflux disease without esophagitis; M19.90 Unspecified osteoarthritis, unspecified site; F41.9 Anxiety disorder, unspecified; Z87.820 Personal history of traumatic brain injury; Z91.030 Bee allergy status; Z91.048 Other nonmedicinal substance allergy status; Z87.442 Personal history of urinary calculi; Z28.21 Immunization not carried out because of patient refusal
CPT/HCPCS: 36415; 80053; 80178; 80307; 80320; 80329; 81003; 84443; 85025; 87651; 90853; 93005; 99222; 99231; 99232; 99233; 99238; 99284; A9270-GY; G0480

== ENCOUNTER 2019-05-20 05:11 | Emergency (ER) | payer MEDICARE ==
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
[2019-05-20 06:04] LABS: Urine Appearance Clear; Urine Bilirubin Negative (Negative); Urine Blood Negative (Negative); Urine Color Yellow; Urine Glucose Negative (Negative); Urine Ketones Negative (Negative); Urine Nitrite Negative (Negative); Urine Protein Negative (Negative); Urine Specific Gravity 1.011 (1.010-1.030); Urine Urobilinogen Negative (Negative)
[2019-05-20 06:26] LABS: ABS Eosinophils 0.4 10^3/ul (0-0.6); ABS Lymphocytes 1.2 10^3/ul (1.0-4.8); ABS Monocytes 0.5 10^3/ul (0-0.8); ABS Neutrophils 2.9 10^3/ul (1.5-7.7); Eosinophil % 7.7 %; Hematocrit 37 % (42-52); Hemoglobin 12.6 g/dL (14.0-18.0); Lymphocyte % 23.5 %; Mean Corpuscular HGB Conc 34 g/dL (31-36); Mean Corpuscular Hemoglobin 31 pg (27-31); Mean Corpuscular Volume 90 fL (80-94); Mean Platelet Volume 9.1 fL (7.4-10.4); Platelet Count 192 10^3/uL (150-450); Red Blood Count 4.09 10^6 /uL (4.18-5.48); Red Cell Distribution Width 14 % (10-15)
[2019-05-20 06:43] LABS: Albumin 3.9 g/dL (3.2-5.2); BUN/Creatinine Ratio 44.9 (8-20); EGFR African American 124.1 (>60); EGFR Non-African American 102.6 (>60); Potassium 3.6 mmol/L (3.5-5.0); Total Bilirubin 0.3 mg/dL (0.2-1.0); Total Protein 5.9 g/dL (6.4-8.9)
[2019-05-20 07:05] LABS: TSH (Thyroid Stimulating Horm) 2.17 mcIU/mL (0.34-5.60)
[2019-05-20 07:07] LABS: Free T4 0.83 ng/dL (0.61-1.12)
[2019-05-20] MEDS ORDERED: Lactated Ringers 1000 ML Bag* 1,000 ML IV SCH (09:00)
[2019-05-20 09:45] VITALS: BP 141/96
== END 2019-05-20 09:44 | disposition home or self-care (01) ==
LOC: ED 05:11
DX: R60.0 Localized edema (principal); E86.0 Dehydration; I10 Essential (primary) hypertension; E78.5 Hyperlipidemia, unspecified; E78.00 Pure hypercholesterolemia, unspecified; K21.9 Gastro-esophageal reflux disease without esophagitis; F41.9 Anxiety disorder, unspecified; F43.10 Post-traumatic stress disorder, unspecified; F90.9 Attention-deficit hyperactivity disorder, unspecified type; Z87.442 Personal history of urinary calculi; Z79.899 Other long term (current) drug therapy
CPT/HCPCS: 36415; 71046; 80053; 81003; 83880; 84439; 84443; 85025; 85379; 93005; 93970; 96360; 99283

== ENCOUNTER 2019-05-26 20:08 | Emergency (ER) | payer MEDICARE ==
[2019-05-26 21:12] LABS: Urine Appearance Clear; Urine Bilirubin Negative (Negative); Urine Blood Negative (Negative); Urine Color Yellow; Urine Glucose Negative (Negative); Urine Ketones Negative (Negative); Urine Nitrite Negative (Negative); Urine Protein Negative (Negative); Urine Urobilinogen Negative (Negative)
[2019-05-26 22:35] LABS: ABS Eosinophils 0.3 10^3/ul (0-0.6); ABS Lymphocytes 1.7 10^3/ul (1.0-4.8); ABS Monocytes 0.6 10^3/ul (0-0.8); ABS Neutrophils 2.8 10^3/ul (1.5-7.7); Eosinophil % 5.6 %; Hematocrit 40 % (42-52); Hemoglobin 13.7 g/dL (14.0-18.0); Lymphocyte % 30.6 %; Mean Corpuscular HGB Conc 34 g/dL (31-36); Mean Corpuscular Hemoglobin 31 pg (27-31); Mean Corpuscular Volume 90 fL (80-94); Mean Platelet Volume 8.5 fL (7.4-10.4); Platelet Count 236 10^3/uL (150-450); Red Blood Count 4.46 10^6 /uL (4.18-5.48); Red Cell Distribution Width 14 % (10-15); White Blood Count 5.5 10^3/uL (3.5-10.8)
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
[2019-05-26 22:55] LABS: Albumin/Globulin Ratio 1.8 (1-3); BUN/Creatinine Ratio 14.9 (8-20); Calcium 9.1 mg/dL (8.6-10.3); EGFR African American 109.4 (>60); EGFR Non-African American 90.4 (>60); Globulin 2.2 g/dL (2-4); Potassium 4.2 mmol/L (3.5-5.0); Total Bilirubin 0.4 mg/dL (0.2-1.0); Total Protein 6.2 g/dL (6.4-8.9)
[2019-05-27] MEDS ORDERED: Iohexol 300* (CONTRAST) 10 ML SDV IV ONE (00:22)
[2019-05-27 02:33] VITALS: BP 133/80
== END 2019-05-27 02:30 | disposition home or self-care (01) ==
LOC: ED 20:08
DX: R60.0 Localized edema (principal); M25.569 Pain in unspecified knee
CPT/HCPCS: 36415; 74177; 80053; 81003; 85025; 99282; Q9967

== ENCOUNTER 2019-10-06 17:41 | Emergency (ER) | payer MEDICARE ==
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
[2019-10-06] MEDS ORDERED: Fluorescein Sodium TOPICAL* 1 MG TEST STRIP OPHTHALMIC ONE (17:51)
--- OUTSIDE RECORDS SUMMARY | 2019-10-06 17:51 | XMS REPORT ---
:1960 Author Organization [facility]- [facility] Care Team Providers Name Role Phone Elda Rowe Primary Care Physician Unavailable Allergies, Adverse Reactions, Alerts Allergy Code CodeSystem Reaction Severity Criticality Status Start Substance Date Moderate Medications Medication Medication Medication Start Stop Route Dose Status Fill Code CodeSystem Date Date Instructions duloxetine 827403 RxNorm 2019- oral 60 mg 1 completed Take 1 5-03 05-30 capsule, capsule once delayed a day for 30 release( day(s) DR/EC) once a day celecoxib 162782 RxNorm 2017-0 oral 100 mg active for 90 5-10 capsule day(s) esomeprazole 413024 RxNorm 2017-06 oral 40 mg active for 30 magnesium 0-17 capsule, day(s) delayed release( DR/EC) duloxetine 265855 RxNorm 2019- oral 60 mg 1 completed Take 1 8-15 08-27 capsule, capsule delayed every morning release( for 30 DR/EC) day(s) every morning dextroamphetam 422410 RxNorm 2018-0 oral 20 mg active for 30 ine-amphetamin 3-13 capsule, day(s) e extended release 24hr lisinopril 165994 RxNorm 20180 oral 20 mg active for 90 9-24 tablet day(s) bupropion HCl 801169 RxNorm 2019-0 oral 75 mg active for 90 2-19 tablet day(s) duloxetine 043383 RxNorm 2019 2019- oral 30 mg 1 completed Take 1 6-27 08-27 capsule, capsule once delayed a day for 30 release( day(s) DR/EC) once a day buspirone 137339 RxNorm 2017-06 oral 15 mg active for 90 1-17 tablet day(s) duloxetine 626357 RxNorm 2019-0 oral 60 mg active for 30 8-27 capsule, day(s) delayed release( DR/EC) escitalopram 935987 RxNorm 2019- oral 20 mg completed for 90 oxalate 2-19 08-27 tablet day(s) gabapentin 568090 RxNorm 2018- oral 300 mg active for 30 4-11 capsule day(s) atorvastatin 823177 RxNorm oral 20 mg active for 90 9-16 tablet day(s) clonazepam 360860 RxNorm 2018- oral 0.5 mg active for 30 3-13 tablet day(s) topiramate 346757 RxNorm oral 50 mg active for 90 2-19 tablet day(s) duloxetine 056152 RxNorm 2018- 2019- oral 30 mg 1 completed Take 1 09-28 capsule, capsule once delayed a day for 30 release( day(s) DR/EC) once a day duloxetine 705451 RxNorm 2019- oral 60 mg 1 completed Take 1 11-15- capsule, capsule delayed every morning release( for 30 DR/EC) day(s) every morning Problems Problem Name Code CodeSystem Alternate Alternate Start End Status Narrative Code CodeSystem Date Date Generalized 08170696 SNOMED-CT Active anxiety 4-10 disorder 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 SNOMED-CT Active ic stress 3-22 disorder, unspecified Mild 14425040 SNOMED-CT Active cognitive 4-10 impairment, so stated Major [id number] SNOMED-CT 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, recurrent, in partial remission Post-traumat [id number] SNOMED-CT 0 Active ic stress 3-22 disorder, unspecified Relevant diagnostic tests/laboratory data Narrative No Information Procedures Procedure Code CodeSystem Target Date of Status Service Device Device Device Name Site Procedure Delivery Code Name UID Location SNOMED-CT () 2018-09-28 complete Mental d Health- [address], [id number] Psychotherap [id number] SNOMED-CT () 2018-10-03 complete Mental y, 45 04 d Health- minutes with [facility] patient [address], [id number] [phone] Office [place] [id number] SNOMED-CT () 2018-10-19 complete Mental other 8 d Health- outpatient [facility] visit for [address], established [id number] patient, [phone] which requires at least 2 of these 3 valadez components: A detailed history; A detailed examination; Medical decision making of moderate complexity. Counseling and/o Office or [id number] SNOMED-CT () 2018-11-15 complete Mental other 7 d Health- outpatient [facility] visit for [address], established [id number] patient, [phone] which requires at least 2 of these 3 valadez components: An expanded problem focused history; An expanded problem focused examination; Medical decision making of low Office or [id number] SNOMED-CT () 2018-12-13 complete Mental other 6 d Health- outpatient [facility] visit for [address], established [phone] patient, [phone] which requires at least 2 of these 3 valadez components: A problem focused history; A problem focused examination; Straightforw augustina medical decision making. Counselin Psychotherap [id number] SNOMED-CT () 2018-12-19 complete Mental y, 45 04 d Health- minutes with [facility] patient [address], [id number] [phone] Psychotherap [id number] SNOMED-CT () 2019-01-16 complete Mental y, 45 04 d Health- minutes with Maria [facility] patient [address], [id number] [phone] Psychotherap [id number] SNOMED-CT () 2019-02-08 complete Mental y, 45 04 d Health- minutes with Maria [facility] patient [address], [id number] [phone] Office or [id number] SNOMED-CT () 2019-02-12 complete Mental other 6 d Health- outpatient [facility] visit for [address], established [id number] patient, [phone] which requires at least 2 of these 3 valadez components: A problem focused history; A problem focused examination; Straightforw augustina medical decision making. Counselin Psychotherap [id number] SNOMED-CT () 2019-04-09 complete Mental y, 45 04 d Health- minutes with [facility] patient [address], [id number] [phone] Office or [id number] SNOMED-CT () 2019-04-11 complete Mental other 7 d Health- outpatient [facility] visit for [address], established [id number] patient, [phone] which requires at least 2 of these 3 valadez components: An expanded problem focused history; An expanded problem focused examination; Medical decision making of low SNOMED-CT () 2019-04-16 complete Mental d Health- [facility] [address], [phone] [phone] Psychotherap [id number] SNOMED-CT () 2019-04-16 complete Mental y, 45 04 d Health- minutes with [facility] patient [address], [id number] [phone] Office or [id number] SNOMED-CT () 2019-05-30 complete Mental other 8 d Health- outpatient Maria [facility] visit for [address], established [id number] patient, [phone] which requires at least 2 of these 3 valadez components: A detailed history; A detailed examination; Medical decision making of moderate complexity. Counseling and/o Psychotherap [id number] SNOMED-CT () 2019-05-28 complete Mental y, 45 04 d Health- minutes with [facility] patient [address], [id number] [phone] Psychotherap [id number] SNOMED-CT () 2019-06-24 complete Mental y, 45 04 d Health- minutes with [facility] patient [address], [id number] [phone] Office or [id number] SNOMED-CT () 2019-06-21 complete Mental other 7 d Health- outpatient [facility] visit for [address], established [id number] patient, [phone] which requires at least 2 of these 3 valadez components: An expanded problem focused history; An expanded problem focused examination; Medical decision making of low Psychotherap [id number] SNOMED-CT () 2019-07-22 complete Mental y, 45 04 d Health- minutes with Maria [facility] patient [address], [phone] [phone] Office or [id number] SNOMED-CT () 2019-07-26 complete Mental other 6 d Health- outpatient [facility] visit for [address], [facility], of an [place], established [phone] patient, [phone] which requires at least 2 of these 3 valadez components: A problem focused history; A problem focused examination; Straightforw augustina medical decision making. 

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
--- OUTSIDE RECORDS SUMMARY | 2019-10-06 17:51 | XMS REPORT ---
:1960 Author Organization [facility] Care Team Providers Name Role Phone Elda Rowe Primary Care Physician Unavailable Allergies, Adverse Reactions, Alerts Allergy Code CodeSystem Reaction Severity Criticality Status Start Substance Date Moderate Medications Medication Medication Medication Start Stop Route Dose Status Fill Code CodeSystem Date Date Instructions clonazepam 19740726 RxNorm 2019-0 oral 0.5 mg active for 30 3-13 tablet day(s) duloxetine 992439 RxNorm 2019- oral 30 mg 1 completed Take 1 4-12 05-03 capsule, capsule once delayed a day for 30 release( day(s) DR/EC) once a day topiramate 355107 RxNorm 0 oral 50 mg active for 90 2-19 tablet day(s) duloxetine 263529 RxNorm 2019- oral 60 mg 1 completed Take 1 5-03 05-30 capsule, capsule once delayed a day for 30 release( day(s) DR/EC) once a day duloxetine 646923 RxNorm 2019- oral 60 mg 1 completed Take 1 8-15 08-27 capsule, capsule delayed every morning release( for 30 DR/EC) day(s) every morning celecoxib 524982 RxNorm 0 oral 100 mg active for 90 5-10 capsule day(s) bupropion HCl 655031 RxNorm 0 oral 75 mg active for 90 2-19 tablet day(s) gabapentin 234660 RxNorm 2018-0 oral 300 mg active for 30 4-11 capsule day(s) buspirone 644905 RxNorm 2017-06 oral 15 mg active for 90 1-17 tablet day(s) duloxetine 173883 RxNorm 0 2019- oral 30 mg 1 completed Take 1 6-27 08-27 capsule, capsule once delayed a day for 30 release( day(s) DR/EC) once a day atorvastatin 566449 RxNorm oral 20 mg active for 90 9-16 tablet day(s) escitalopram 743184 RxNorm 2019- oral 20 mg completed for 90 oxalate 2-19 08-27 tablet day(s) duloxetine 758418 RxNorm oral 60 mg active for 30 8-27 capsule, day(s) delayed release( DR/EC) lisinopril 516773 RxNorm oral 20 mg active for 90 9-24 tablet day(s) esomeprazole 413098 RxNorm 2017-06 oral 40 mg active for 30 magnesium 0-17 capsule, day(s) delayed release( DR/EC) duloxetine 769700 RxNorm 2019- oral 60 mg 1 completed Take 1 5-30 08-27 capsule, capsule delayed every morning release( for 30 DR/EC) day(s) every morning dextroamphetam 972962 RxNorm oral 20 mg active for 30 ine-amphetamin 3-13 capsule, day(s) e extended release 24hr Problems Problem Name Code CodeSystem Alternate Alternate Start End Status Narrative Code CodeSystem Date Date 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 ic stress 3-22 disorder, unspecified Generalized 44203588 SNOMED-CT Active anxiety 4-10 disorder 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, recurrent, 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 SNOMED-CT Active ic stress 3-22 disorder, unspecified Mild 63541722 SNOMED-CT Active cognitive 4-10 impairment, so stated Relevant diagnostic tests/laboratory data Narrative No Information Procedures Procedure Code CodeSystem Target Date of Status Service Device Device Device Name Site Procedure Delivery Code Name UID Location SNOMED-CT () 2018-09-28 complete Mental d Health- [address], [id number] Psychotherap [id number] SNOMED-CT () 2018-10-03 complete Mental y, 45 04 d Health- minutes with [place] patient [address], [id number] [phone] Office or [id number] SNOMED-CT () 2018-10-19 complete Mental other 8 d Health- outpatient Maria Guadalupe visit for [address], established [id number] patient, [phone] which requires at least 2 of these 3 valadez components: A detailed history; A detailed examination; Medical decision making of moderate complexity. Counseling and/o Office or [id number] SNOMED-CT () 2018-11-15 complete Mental other 7 d Health- outpatient [place] visit for [address], established [id number] patient, [phone] which requires at least 2 of these 3 valadez components: An expanded problem focused history; An expanded problem focused examination; Medical decision making of low Office or [id number] SNOMED-CT () 2018-12-13 complete Mental other 6 d Health- outpatient [place] visit for [address], established [id number] patient, [phone] which requires at least 2 of these 3 valadez components: A problem focused history; A problem focused examination; Straightforw augustina medical decision making. Counselin Psychotherap [id number] SNOMED-CT () 2018-12-19 complete Mental y, 45 04 d Health- minutes with [place] patient [address], [id number] [phone] Psychotherap [id number] SNOMED-CT () 2019-01-16 complete Mental y, 45 04 d Health- minutes with [facility] patient [address], [id number] [id number] Psychotherap [id number] SNOMED-CT () 2019-02-08 complete Mental y, 45 04 d Health- minutes with [place] patient [address], [id number] [phone] Office or [id number] SNOMED-CT () 2019-02-12 complete Mental other 6 d Health- outpatient Maria Guadalupe visit for [address], established [id number] patient, [phone] which requires at least 2 of these 3 valadez components: A problem focused history; A problem focused examination; Straightforw augustina medical decision making. Counselin Psychotherap [id number] SNOMED-CT () 2019-04-09 complete Mental y, 45 04 d Health- minutes with [place] patient [address], [id number] [phone] Office or [id number] SNOMED-CT () 2019-04-11 complete Mental other 7 d Health- outpatient [place] visit for [address], established [id number] patient, [phone] which requires at least 2 of these 3 valadez components: An expanded problem focused history; An expanded problem focused examination; Medical decision making of low SNOMED-CT () 2019-04-16 complete Mental d Health- Maria Guadalupe [address], [id number] [phone] Psychotherap [id number] SNOMED-CT () 2019-04-16 complete Mental y, 45 04 d Health- minutes with [place] patient [address], [id number] [id number] Office or [id number] SNOMED-CT () 2019-05-30 complete Mental other 8 d Health- outpatient [place] visit for [address], established [id number] patient, [phone] which requires at least 2 of these 3 valadez components: A detailed history; A detailed examination; Medical decision making of moderate complexity. Counseling and/o Psychotherap [id number] SNOMED-CT () 2019-05-28 complete Mental y, 45 04 d Health- minutes with [facility] Gu[facility] patient [address], [id number] [id number] Psychotherap [id number] SNOMED-CT () 2019-06-24 complete Mental y, 45 04 d Health- minutes with [place] patient [address], [id number] [phone] Office or [id number] SNOMED-CT () 2019-06-21 complete Mental other 7 d Health- outpatient Maria Guadalupe visit for [address], established [id number] patient, [phone] which requires at least 2 of these 3 valadez components: An expanded problem focused history; An expanded problem focused examination; Medical decision making of low Psychotherap [id number] SNOMED-CT () 2019-07-22 complete Mental y, 45 04 d Health- minutes with Maria Gu[facility]upe patient [address], [id number] [phone] Office or [id number] SNOMED-CT () 2019-07-26 complete Mental other 6 d Health- outpatient [place] visit for [address], management [place], of an [place], established [id number] patient, [phone] which requires at least 2 of these 3 valadez components: A problem focused history; A problem focused examination; Straightforw augustina medical decision making. Counselin Encounters/Encounter Diagnoses Encounter Encounter Diagnosis Diagnosis Name Diagnosis Date of Service Name Code Code CodeSystem Diagnosis Delivery Location Non-Billable 78898 [id number] Post-traumatic SNOMED-CT 2019-07-29 Behavioral stress Health disorder, Clinic , , unspecified , Vital Signs No Information Social History Element Description Description Start End Code CodeSystem AdditionalInfo Date Date SexAssignedAtBirth Male 1961-0 M AdministrativeGender 2-04 Hospital Discharge Instructions Reason For Referral Medical Equipment FDA Assessments
--- OUTSIDE RECORDS SUMMARY | 2019-10-06 17:51 | XMS REPORT | Continuity of Care Document ---
:1960 Author Organization 0001 - [facility] Address [address] [place] [address] Phone Care Team Providers Name Role Phone CHARLENE DUGAN PHD Unavailable Unavailable Allergies, Adverse Reactions, Alerts Substance Reaction Status Substance Type Unknown WARNIN allergy(ies) could not be collected because the type is not supported. Please contact [facility] for further details. Medications Medication [...] For Visit Copied on Encounter 2047 - [facility], Center brain injury CHRISTOPHER. 33-57 with loss of 0 93 Jose consciousness [facility], [address], [place] hours [address] [place], [place], [place], [address]. [address], [place] subsequent tel:[phone] tel: encounter 2047 [phone] 2047 - [facility], Center brain injury CHRISTOPHER. 33-57 with loss of [address], [address], [place] hours [address] [place], [place], [place], [address]. [address], [place] subsequent tel:[phone] tel: encounter 2047 [phone] 2047 - [facility], Center brain injury CHRISTOPHER. 33-57 with loss of [address], of [address], [place] hours [address] [place], [place], [place], [address]. [address], [place] subsequent tel:[phone] tel: encounter 2047 [phone] 0001 - S Sleep Traumatic Dec-1 [employer] [employer] [facility] [employer], Center brain injury 8 CHRISTOPHER. 57 with loss of [address], [address], [place] hours [address] [place], [place], [place], [address]. [address], [place] subsequent tel:[phone] tel: encounter [phone] 0001 - S Sleep Traumatic Dec-0 [employer] [facility] [employer], Center brain injury 4 CHRISTOPHER. with loss of 9 93 Jose consciousness [facility], of [address], [place] hours [address] [place], [place], [place], [address]. [address], [place] subsequent tel:[phone] tel: encounter 2047 [phone] 0001 - S Sleep Traumatic Oct-0 [employer], Center brain injury CHRISTOPHER. with loss of 9 93 Jose consciousness [facility], of [address], [place] hours [address] [place], [place], [place], [address]. [address], [place] subsequent tel: tel: encounter 2047 [phone] 0001 - S Sleep Traumatic Sep-2 [employer], Center brain injury CHRISTOPHER. with loss of 9 93 Jose consciousness [facility], of [address], [place] hours [address] [place], [place], [place], [address]. [address], [place] subsequent tel:[phone] tel: encounter 2047 [phone] 0001 - S Sleep Traumatic Sep-1 [employer], Center brain injury CHRISTOPHER. with loss of 9 93 Jose consciousness [facility], of [address], [place] hours [address] [place], [place], [place], [address]. [address], [place] subsequent tel:[phone] tel: encounter 2047 [phone] 0001 - S Sleep Traumatic Aug-2 [employer], Center brain injury CHRISTOPHER. 3357 with loss of [address], of [address], [place] hours [address] [place], [place], [place], [address]. [address], [place] subsequent tel:[phone] tel:+ encounter [phone] 0001 - [facility] Sleep Traumatic Dec-2 [employer] [facility] [employer], Center brain injury 4 CHRISTOPHER. with loss of [address], [address], [place] [address] [place], [place], [place], [address]. [address], [place] subsequent tel:[phone] tel:+ encounter [phone] 0001 - [facility] Sleep Traumatic Dec- [employer] [facility] [employer], Center brain injury 0 CHRISTOPHER. with loss of [address], of [address], [place] hours [address] [place], [place], [place], [address]. [address], [place] subsequent tel:[phone] tel: encounter 2047 [phone] 0001 - [facility] Sleep Traumatic Jonah-2 [employer] [facility], Center brain injury 6 CHRISTOPHER. with loss of [address], of [address], [place] [address] [place], [place], [place], [address]. [address], [place] subsequent tel:[phone] tel: encounter 2047 [phone] 0001 - [facility] Sleep Traumatic Jonah- [employer] [facility] [employer], Center brain injury 2 CHRISTOPHER. with loss of [address], [address], [place] [address] [place], [place], [place], [address]. [address], [place] subsequent tel:[phone] tel:+[phone] encounter 2047 [phone] 0001 - S Sleep Traumatic October- [employer], Center brain injury CHRISTOPHER. with loss of [address], [address], [place] [address] [place], [place], [place], [address]. [address], [place] subsequent tel:[phone] tel:+ encounter [phone] 0001 - S Sleep Traumatic May-1 [employer] [facility] [employer], [facility] 5 [facility] with loss of [address], [address], [place] hours [address] [place], [place], [place], [address]. [address], [place] subsequent tel:[phone] tel:+ encounter [phone] 0001 - S Sleep Traumatic May-0 [employer] [facility] [employer], Center brain [facility] 1 [facility] with loss of [address], [address], [place] [address] [place], [place], [place], [address]. [address], [place] subsequent tel:[phone] tel: encounter 2047 [phone] 0001 - S Sleep Traumatic Apr-1 [employer] [facility] [employer], Center brain [facility] 7 [facility] with loss of [address], [address], [place] [address] [place], [place], [place], [address]. [address], [place] subsequent tel:[phone] tel: encounter 2047 [phone] 0001 - S Sleep Traumatic Apr-0 [employer] [facility] [employer], Center brain injury 3-201 [facility] with loss of [address], [address], [place] [address] [place], [place], [place], [address]. [address], [place] subsequent tel:[phone] tel:+ encounter [phone] 0001 - S Traumatic Mar-2 [employer], Neuropsych brain injury 0-201 [facility] 58 Services with loss of [address], [address], [place] [address] [place], [place], [place], [address]. [address], [place] subsequent tel:[phone] tel:+ encounter [phone] 0001 - [facility], Center 1 33-57 [address] [place], [address], [place] tel:[phone] 0001 - [facility], Concussion concussive 33-57 Center syndrome [address] [place], [address], [place] tel:[phone] - [facility], Center 9 [address] [place], [address], [place] tel:[phone] 0001 - [facility], Concussion 3 33-57 Center [address] [place], [address], [place] tel:+ [phone] 0001 - [facility], Concussion concussive 0 33-57 Center syndromeArthra 4 [facility] [place] [facility], [facility], traffic NOS, [facility], [place], [address], [place] tel:+ [phone] 0001 - [facility], Concussion concussive 33-57 Center syndrome [address] [place], [address], [place] tel:+ [phone] 0001 - [facility], Concussion BenignReflux, 3357 Center esophagealRefl [address] [place], [address], [place] tel:+ [phone] Family History Family Member Diagnosis Age At Onset Unknown Immunizations Vaccine Date Status Comments Immunization Unknown Payers Payer name Insurance type Covered green party ID Authorization(s) Maribel Rodriguez [id number] Social History Type Description Quantity Date Captured [...]
[2019-10-06] MEDS ORDERED: Tetracaine 0.5% OPTH.SOL 4 ML* 1 DROP BTL LEFT EYE ONE (17:52)
[2019-10-06 18:23] VITALS: BP 142/91
[2019-10-06] MEDS ORDERED: Erythromycin OPTH OINT* APPLIC OINT LEFT EYE ONE (18:44)
== END 2019-10-06 19:19 | disposition home or self-care (01) ==
LOC: UCEAST 17:41
DX: S05.02XA Injury of conjunctiva and corneal abrasion without foreign body, left eye, initial encounter (principal); H11.32 Conjunctival hemorrhage, left eye; W22.8XXA Striking against or struck by other objects, initial encounter; Y93.H9 Activity, other involving exterior property and land maintenance, building and construction; Y92.9 Unspecified place or not applicable; E78.5 Hyperlipidemia, unspecified; I10 Essential (primary) hypertension; Z79.899 Other long term (current) drug therapy; Z87.820 Personal history of traumatic brain injury; Z91.030 Bee allergy status
CPT/HCPCS: 99212; A9270-GY; G0463

== ENCOUNTER 2022-03-02 15:31 | Inpatient (IN) ==
[2022-03-02 16:21] LABS: ABS Eosinophils 0.1 10^3/ul (0-0.6); ABS Lymphocytes 1.4 10^3/ul (1.0-4.8); ABS Monocytes 0.6 10^3/ul (0-0.8); ABS Neutrophils 3.4 10^3/ul (1.5-7.7); Eosinophil % 2.1 %; Hematocrit 42 % (42-52); Hemoglobin 13.7 g/dL (14.0-18.0); Lymphocyte % 24.7 %; Mean Corpuscular HGB Conc 33 g/dL (31-36); Mean Corpuscular Hemoglobin 29 pg (27-31); Mean Corpuscular Volume 88 fL (80-94); Mean Platelet Volume 9.8 fL (7.4-10.4); Platelet Count 172 10^3/uL (150-450); Red Blood Count 4.75 10^6 /uL (4.18-5.48); Red Cell Distribution Width 14 % (10-15); White Blood Count 5.5 10^3/uL (3.5-10.8)
[2022-03-02 16:50] LABS: Urine Appearance Clear; Urine Bilirubin Negative (Negative); Urine Blood Negative (Negative); Urine Color Yellow; Urine Glucose Negative (Negative); Urine Ketones 3+ (80mg/dL) (Negative); Urine Nitrite Negative (Negative); Urine Protein Negative (Negative); Urine Specific Gravity 1.021 (1.002-1.030); Urine Urobilinogen 0.2 (Negative) (Negative); Urine pH 5.5 (5.0-9.0)
[2022-03-02 17:00] LABS: TSH Ultra Thyroid Stim Horm 1.86 mcIU/mL (0.34-5.60)
[2022-03-02 17:08] LABS: Urine Benzodiazepine Screen None Detected (None Detect); Urine Cannabinoids Screen None Detected (None Detect); Urine Opiates Screen None Detected (None Detect)
[2022-03-02 17:17] LABS: ALT 39 U/L (7-52); AST 46 U/L (13-39); Albumin 4.5 g/dL (3.2-5.2); Alcohol, S < 13 mg/dL (<13); Alkaline Phosphatase 76 U/L (35-149); Anion Gap 10 mmol/L (2-11); Blood Urea Nitrogen 19 mg/dL (6-24); CO2 Carbon Dioxide 20 mmol/L (22-32); Calcium 9.2 mg/dL (8.6-10.3); Chloride 110 mmol/L (101-111); Globulin 2.3 g/dL (2-4); Glucose 103 mg/dL (70-100); Potassium 3.6 mmol/L (3.5-5.0); Salicylate < 2.50 mg/dL (<30); Sodium 140 mmol/L (135-145); Total Protein 6.8 g/dL (6.4-8.9)
[2022-03-02 17:18] LABS: Acetaminophen < 15 mcg/mL
[2022-03-03] MEDS ORDERED: Al Hydrox/Mg Hydrox/Simet LIQ 30 ML UDC PO PRN (00:37)
[2022-03-03] MEDS ORDERED: DULoxetine DR 60 mg CAP PO SCH (09:00)
[2022-03-03] MEDS: Vitamin THERAPEUTIC TAB PO SCH (09:40)
[2022-03-04] MEDS: DULoxetine DR 60 mg CAP PO SCH (08:34)
[2022-03-04] MEDS: Vitamin THERAPEUTIC TAB PO SCH (08:36)
[2022-03-04] MEDS ORDERED: Lidocaine 5% OINT TUBE TOPICAL PRN (08:45)
[2022-03-04] MEDS: Benzocaine (plain) Lozenge 15 MG MT PRN (16:58)
[2022-03-05] MEDS: Benzocaine (plain) Lozenge 15 MG MT PRN (00:09)
[2022-03-05 08:19] LABS: HDL Cholesterol 40.6 mg/dL
[2022-03-05] MEDS: Vitamin THERAPEUTIC TAB PO SCH (08:19)
[2022-03-05] MEDS: DULoxetine DR 60 mg CAP PO SCH (08:19)
[2022-03-06] MEDS: DULoxetine DR 60 mg CAP PO SCH (07:18)
[2022-03-06] MEDS: Vitamin THERAPEUTIC TAB PO SCH (07:20)
[2022-03-07] MEDS: Vitamin THERAPEUTIC TAB PO SCH (07:11)
[2022-03-07] MEDS: DULoxetine DR 60 mg CAP PO SCH (07:11)
[2022-03-07] MEDS: Benzocaine (plain) Lozenge 15 MG MT PRN (11:15)
[2022-03-08] MEDS: Vitamin THERAPEUTIC TAB PO SCH (08:40)
[2022-03-08] MEDS: DULoxetine DR 60 mg CAP PO SCH (08:42)
[2022-03-09] MEDS: DULoxetine DR 60 mg CAP PO SCH (08:55)
[2022-03-09] MEDS: Vitamin THERAPEUTIC TAB PO SCH (08:58)
[2022-03-09] MEDS: Benzocaine (plain) Lozenge 15 MG MT PRN (13:58)
[2022-03-09] MEDS: Levalbuterol HFA INHALER MDI INH PRN (13:59)
[2022-03-10] MEDS: DULoxetine DR 60 mg CAP PO SCH (08:47)
[2022-03-10] MEDS: Vitamin THERAPEUTIC TAB PO SCH (08:48)
[2022-03-11] MEDS: Vitamin THERAPEUTIC TAB PO SCH (09:05)
[2022-03-11] MEDS: DULoxetine DR 60 mg CAP PO SCH (09:05)
[2022-03-11] MEDS: Fluticasone NASAL SPRAY 50MCG 16 gm SPRAY BTL BOTH NARES SCH (16:49)
[2022-03-11] MEDS: Levalbuterol HFA INHALER MDI INH PRN (20:35)
[2022-03-12] MEDS: Vitamin THERAPEUTIC TAB PO SCH (07:48)
[2022-03-12] MEDS: DULoxetine DR 60 mg CAP PO SCH (07:49)
[2022-03-12] MEDS: Fluticasone NASAL SPRAY 50MCG 16 gm SPRAY BTL BOTH NARES SCH (07:49)
[2022-03-12] MEDS: Levalbuterol HFA INHALER MDI INH PRN (15:09)
[2022-03-13] MEDS: DULoxetine DR 60 mg CAP PO SCH (09:02)
[2022-03-13] MEDS: Vitamin THERAPEUTIC TAB PO SCH (09:03)
[2022-03-13] MEDS: Fluticasone NASAL SPRAY 50MCG 16 gm SPRAY BTL BOTH NARES SCH (09:04)
[2022-03-13] MEDS: Levalbuterol HFA INHALER MDI INH PRN (09:07)
[2022-03-14] MEDS: DULoxetine DR 60 mg CAP PO SCH (08:46)
[2022-03-14] MEDS: Vitamin THERAPEUTIC TAB PO SCH (08:47)
[2022-03-14] MEDS: Fluticasone NASAL SPRAY 50MCG 16 gm SPRAY BTL BOTH NARES SCH (08:50)
[2022-03-15] MEDS: Benzocaine (plain) Lozenge 15 MG MT PRN ×2 (06:10→21:46)
[2022-03-15] MEDS: DULoxetine DR 60 mg CAP PO SCH (08:02)
[2022-03-15] MEDS: Vitamin THERAPEUTIC TAB PO SCH (08:04)
[2022-03-15] MEDS: Fluticasone NASAL SPRAY 50MCG 16 gm SPRAY BTL BOTH NARES SCH (08:07)
[2022-03-15] MEDS: Levalbuterol HFA INHALER MDI INH PRN ×2 (08:07→13:42)
[2022-03-16 04:07] LABS: Urine Appearance Clear; Urine Bilirubin Negative (Negative); Urine Blood Negative (Negative); Urine Color Yellow; Urine Glucose Negative (Negative); Urine Ketones Negative (Negative); Urine Nitrite Negative (Negative); Urine Protein Negative (Negative); Urine Specific Gravity 1.008 (1.002-1.030); Urine Urobilinogen Negative (Negative)
[2022-03-16] MEDS: Levalbuterol HFA INHALER MDI INH PRN ×2 (04:21→16:15)
[2022-03-16] MEDS: Vitamin THERAPEUTIC TAB PO SCH (09:02)
[2022-03-16] MEDS: Fluticasone NASAL SPRAY 50MCG 16 gm SPRAY BTL BOTH NARES SCH (09:03)
[2022-03-16] MEDS: DULoxetine DR 60 mg CAP PO SCH (09:03)
[2022-03-17] MEDS: Fluticasone NASAL SPRAY 50MCG 16 gm SPRAY BTL BOTH NARES SCH (08:54)
[2022-03-17] MEDS: Benzocaine (plain) Lozenge 15 MG MT PRN (08:55)
[2022-03-17] MEDS: Vitamin THERAPEUTIC TAB PO SCH (08:56)
[2022-03-17] MEDS: DULoxetine DR 60 mg CAP PO SCH (08:56)
[2022-03-17] MEDS: Levalbuterol HFA INHALER MDI INH PRN ×2 (08:56→14:35)
[2022-03-18] MEDS: DULoxetine DR 30 mg CAP PO SCH (08:43)
[2022-03-18] MEDS: Vitamin THERAPEUTIC TAB PO SCH (08:43)
[2022-03-18] MEDS: Levalbuterol HFA INHALER MDI INH PRN (08:45)
[2022-03-18] MEDS: Benzocaine (plain) Lozenge 15 MG MT PRN ×2 (08:45→16:43)
[2022-03-18] MEDS: Fluticasone NASAL SPRAY 50MCG 16 gm SPRAY BTL BOTH NARES SCH (08:45)
[2022-03-19] MEDS: DULoxetine DR 30 mg CAP PO SCH (09:26)
[2022-03-19] MEDS: Vitamin THERAPEUTIC TAB PO SCH (09:27)
[2022-03-19] MEDS: Fluticasone NASAL SPRAY 50MCG 16 gm SPRAY BTL BOTH NARES SCH (09:29)
[2022-03-19] MEDS: Levalbuterol HFA INHALER MDI INH PRN (14:02)
[2022-03-20] MEDS: Levalbuterol HFA INHALER MDI INH PRN (04:20)
[2022-03-20] MEDS: DULoxetine DR 30 mg CAP PO SCH (08:58)
[2022-03-20] MEDS: Vitamin THERAPEUTIC TAB PO SCH (08:58)
[2022-03-20] MEDS: Fluticasone NASAL SPRAY 50MCG 16 gm SPRAY BTL BOTH NARES SCH (09:01)
[2022-03-21] MEDS: DULoxetine DR 30 mg CAP PO SCH (07:36)
[2022-03-21] MEDS: Vitamin THERAPEUTIC TAB PO SCH (07:39)
[2022-03-21] MEDS: Fluticasone NASAL SPRAY 50MCG 16 gm SPRAY BTL BOTH NARES SCH (08:08)
[2022-03-22] MEDS: Levalbuterol HFA INHALER MDI INH PRN ×2 (08:31→17:29)
[2022-03-22] MEDS: Vitamin THERAPEUTIC TAB PO SCH (08:34)
[2022-03-22] MEDS: Fluticasone NASAL SPRAY 50MCG 16 gm SPRAY BTL BOTH NARES SCH ×2 (12:25→17:29)
[2022-03-23] MEDS: Vitamin THERAPEUTIC TAB PO SCH (07:46)
[2022-03-23] MEDS: Benzocaine (plain) Lozenge 15 MG MT PRN (07:52)
[2022-03-23] MEDS: Levalbuterol HFA INHALER MDI INH PRN ×2 (07:53→17:04)
[2022-03-23] MEDS: Fluticasone NASAL SPRAY 50MCG 16 gm SPRAY BTL BOTH NARES SCH (07:54)
[2022-03-24] MEDS: Vitamin THERAPEUTIC TAB PO SCH (07:37)
[2022-03-24] MEDS: Benzocaine (plain) Lozenge 15 MG MT PRN (07:40)
[2022-03-24] MEDS: Levalbuterol HFA INHALER MDI INH PRN (07:42)
[2022-03-24] MEDS: Fluticasone NASAL SPRAY 50MCG 16 gm SPRAY BTL BOTH NARES SCH (07:43)
[2022-03-24 09:47] VITALS: BP 99/65
== END 2022-03-24 12:00 | disposition home or self-care (01) | DRG 885 ==
LOC: ED 15:31 → BSU 22:00
PROVIDERS: ADMIT Psychiatry & Neurology Psychiatry; ATTEND Psychiatry & Neurology Psychiatry

== ENCOUNTER 2023-09-12 13:23 | Observation (INO) ==
[2023-09-12] MEDS: LACTATED RINGERS IV ONE (14:00)
[2023-09-12 14:38] LABS: ABS Eosinophils 0.1 10^3/uL (0.0-0.5); ABS Lymphocytes 0.6 10^3/uL (1.0-4.8); ABS Monocytes 0.6 10^3/uL (0.0-1.1); ABS Neutrophils 6.2 10^3/uL (1.5-7.6); Eosinophil % 0.8 %; Hemoglobin 13.6 g/dL (13.2-16.3); Lymphocyte % 7.9 %; Mean Corpuscular Hemoglobin 28.7 pg (27-33); Mean Corpuscular Hgb Conc 33.2 g/dL (31-36); Mean Corpuscular Volume 86.5 fL (80-97); Mean Platelet Volume 9.6 fL (7.5-11.2); Platelet Count 239 10^3/uL (150-450); Red Blood Count 4.74 10^6/uL (4.06-5.63); Red Cell Distribution Width 14.2 % (12-17); White Blood Count 7.4 10^3/uL (3.6-10.2)
[2023-09-12 14:59] LABS: Activated Partial Thrombo Time 27.6 seconds (26.0-38.0); INR 1.05 (0.83-1.13)
[2023-09-12 15:12] LABS: Urine Appearance Clear; Urine Bilirubin Negative (Negative); Urine Blood Negative (Negative); Urine Color Yellow; Urine Glucose Negative (Negative); Urine Ketones Negative (Negative); Urine Nitrite Negative (Negative); Urine Protein Trace (Negative); Urine Specific Gravity 1.015 (1.002-1.030); Urine Urobilinogen Negative (Negative); Urine pH 5.5 (5.0-8.0)
[2023-09-12 15:15] LABS: Albumin 3.5 g/dL (3.2-5.2); Albumin/Globulin Ratio 1.5 (1-3); C Reactive Protein 16.83 mg/L (<8.01); Calcium 8.9 mg/dL (8.6-10.3); Creatinine, Serum 1.88 mg/dL (0.67-1.17); Globulin 2.4 g/dL (2-4); Potassium 3.4 mmol/L (3.5-5.0); Total Bilirubin 0.7 mg/dL (0.2-1.0); Total Protein 5.9 g/dL (6.4-8.9); eGFR CKD-EPI 39.9 (>60)
[2023-09-12 15:35] LABS: High Sensitivity Troponin 1 Hr < 3 pg/mL (<20)
[2023-09-12] MEDS: Iodixanol (CONTRAST) 320 MG/ML 100 ML SDV IV ONE (15:40)
[2023-09-12 15:42] LABS: Urine Benzodiazepine Screen Presumptive Positive (None Detect); Urine Cannabinoids Screen None Detected (None Detect); Urine Opiates Screen None Detected (None Detect)
[2023-09-12 15:58] LABS: Magnesium 1.7 mg/dL (1.9-2.7)
[2023-09-12] MEDS: Acetaminophen IV 1 GM/100ML 1,000 MG/100 ML BAG IV ONE (16:25)
[2023-09-12] MEDS: KCL 20 MEQ/100 ML IVPREMIX 20 MEQ/100 ML BAG IV ONE (16:29)
[2023-09-12] MEDS: Potassium Chlor 20 meq TAB.ER PO ONE (16:41)
[2023-09-12] MEDS: Al Hydrox/Mg Hydrox/Simet LIQ 30 ML UDC PO ONE (18:46)
[2023-09-12] MEDS: Pantoprazole VIAL 40 MG VIAL IV ONE (18:52)
[2023-09-12] MEDS: Magnesium Sulfate 2 gm BAG 2 GM/50 ML BAG IVPB ONE (22:57)
[2023-09-13] MEDS ORDERED: Fluticasone NASAL SPRAY 50MCG 16 gm SPRAY BTL BOTH NARES PRN (02:03)
[2023-09-13] MEDS: Acetaminophen IV 1 GM/100ML 1,000 MG/100 ML BAG IV ONE (05:10)
[2023-09-13] MEDS: NS 0.9% 1000 ml BAG 250 ML IV ONE (05:11)
[2023-09-13 05:27] LABS: Hematocrit 35.9 % (38-53); Hemoglobin 12.2 g/dL (13.2-16.3); Mean Corpuscular Hemoglobin 29.5 pg (27-33); Mean Corpuscular Hgb Conc 34.1 g/dL (31-36); Mean Corpuscular Volume 86.4 fL (80-97); Mean Platelet Volume 9.2 fL (7.5-11.2); Platelet Count 205 10^3/uL (150-450); Red Blood Count 4.16 10^6/uL (4.06-5.63); White Blood Count 3.4 10^3/uL (3.6-10.2)
[2023-09-13 06:02] LABS: Calcium 7.9 mg/dL (8.6-10.3); Creatinine, Serum 1.04 mg/dL (0.67-1.17); Magnesium 2.1 mg/dL (1.9-2.7); Potassium 3.4 mmol/L (3.5-5.0); eGFR CKD-EPI 81.2 (>60)
[2023-09-13] MEDS: Magnesium Sulfate 2 gm BAG 2 GM/50 ML BAG IVPB ONE (06:19)
[2023-09-13] MEDS: KCL 20 MEQ/100 ML IVPREMIX 20 MEQ/100 ML BAG IV ONE (08:48)
[2023-09-13] MEDS: Potassium Chlor 20 meq TAB.ER PO ONE (08:51)
[2023-09-13] MEDS: Cholecalciferol (VIT D3) 400 units TAB PO SCH (11:02)
[2023-09-13] MEDS: Heparin 5000 UNITS/ML 1 mL VIAL SUBCUT SCH (11:02)
[2023-09-13 13:41] VITALS: BP 130/75
[2023-09-14 13:01] LABS: PSA Screen Ultra Sensitive 0.873 ng/mL (0-4.000)
== END 2023-09-13 17:00 | disposition home or self-care (01) ==
LOC: EDHOLD 13:23 → ED 13:23 → SUATTDRO 22:35 → EDHOLD 09-13 03:42 → MED 09-13 04:20
PROVIDERS: ADMIT Internal Medicine; ATTEND Student in an Organized Health Care Education/Training Program